=== PATIENT | female | born 1970 | race Caucasian/White ===

== ENCOUNTER 2017-12-18 11:29 | Emergency (ER) | payer OTHER, MEDICAID, SELFPAY ==
[2017-12-18 11:32] VITALS: BP 147/83; PULSE 70; RESP 18; TEMP 36.4; O2SAT 100; BMI 21.7
== END 2017-12-18 13:35 | disposition left against medical advice (07) ==
PROVIDERS: Emergency Provider Nurse Practitioner Family; Family Provider Family Medicine; PCP Family Medicine
DX: R52 Pain, unspecified (principal)
CPT/HCPCS: 99282

== ENCOUNTER 2017-12-18 13:58 | Emergency (ER) | payer OTHER, MEDICAID, SELFPAY ==
[2017-12-18 14:03] VITALS: BP 159/91; PULSE 59; RESP 14; TEMP 36.6; O2SAT 100
--- NOTE | 2017-12-18 14:44 | ED_ITS ---
HPI - Back Pain/Injury <TELLY Hankins - Last Filed: 12/18/17 22:29> General Chief Complaint: Back Pain/Injury Stated Complaint: pinched nerve pain Time Seen by Provider: 12/18/17 14:44 History of Present Illness HPI Narrative: 47-year-old female here for complaint of having pain into her left shoulder/trapezius area over the past few days. She has had a chronic pain to that area since April that last year and has been currently going to physical therapy for that reason. She states that she was out of physical therapy for a few weeks as she was down in or gain in now that she is back she went back to physical therapy and felt that physical therapy as she has not been used to it has caused discomfort. She denies any trauma to the area. Increased pain with motion of the left shoulder area. She denies any other concerns or complaints at this time. Related Data Home Medications Medication Instructions Recorded Confirmed montelukast 10 mg PO DAILY 12/18/17 12/29/17 oxybutynin chloride 5 mg PO TID 12/18/17 12/29/17 acyclovir 400 mg PO BID PRN 12/29/17 12/29/17 clonidine HCl 0.1 mg PO HS PRN 12/29/17 12/29/17 estradiol [Yuvafem] 1 tab VAGINAL DAILY 12/29/17 12/29/17 fluticasone 1 spray INTRANASAL DIRECTED 12/29/17 12/29/17 lurasidone [Latuda] 20 mg PO BEDTIME 12/29/17 12/29/17 naproxen [Naprosyn] 500 mg PO BIDCC PRN 12/29/17 12/29/17 Previous Rx's Medication Instructions Recorded lamotrigine [Lamictal] 200 mg PO QDAY #60 tab 08/25/17 lithium carbonate 300 mg PO HS #30 cap 08/25/17 cyclobenzaprine 10 mg PO TID PRN #15 tab 12/18/17 dextroamphetamine-amphetamine ER 60 mg PO QAM #60 cap 12/18/17 30 mg 24hr capsule,extend release clindamycin HCl 300 mg PO QID #28 cap 12/29/17 hydrocodone-acetaminophen 1 tab PO Q4-6H PRN #5 tab 12/29/17 Allergies Allergy/AdvReac Type Severity Reaction Status Date / Time Penicillins [PENICILLINS] Allergy Severe ANAPHYLAXIS Verified 12/18/17 11:35 Review of Systems <TELLY Hankins - Last Filed: 12/18/17 22:29> Constitutional Denies chills, Denies fever(s), Denies lethargy and Denies weakness Eyes Denies change in vision, Denies eye discharge, Denies irritation and Denies loss of vision Cardiovascular Denies chest pain, Denies irregular heart rhythm, Denies lightheadedness, Denies palpitations, Denies dyspnea, Denies dyspnea on exertion and Denies orthopnea Respiratory Denies cough, Denies dyspnea, Denies dyspnea on exertion and Denies wheezing Gastrointestinal Gastrointestinal: Denies abdominal pain, Denies change in bowel habits, Denies diarrhea, Denies nausea and Denies vomiting Genitourinary Denies hematuria, Denies flank pain, Denies urinary incontinence and Denies urinary urgency Musculoskeletal Comments: Pain into left trapezius radiating into the left shoulder. Neurologic Denies loss of vision and Denies weakness Endocrine Denies palpitations Hematologic/Lymphatic Denies easy bruising Allergic/Immunologic Denies wheezing Exam <TELLY Hankins - Last Filed: 12/18/17 22:29> Initial Vital Signs Initial Vital Signs: Vital Signs Temperature 97.8 F 12/18/17 14:03 Pulse Rate 59 L 12/18/17 14:03 Respiratory Rate 14 12/18/17 14:03 Blood Pressure 159/91 H 12/18/17 14:03 Pulse Oximetry 100 12/18/17 14:03 Const General: cooperative and well developed Nutritional Appearance: well nourished Orientation: alert, awake, oriented x3 and not confused [facility] Mouth: oral mucosae normal and moist mucous membranes Eyes General: appearance normal, both eyes and all related structures Eyelids: eyelids normal Conjunctivae: conjunctivae normal Sclera: sclerae normal Pupils: PERRL EOM: EOM intact bilaterally Neck Other: Tenderness on palpation to left trapezius area no tenderness to the paraspinals of cervical spine or to midline cervical spine. Tenderness does radiate into the paraspinals of the thoracic spine of the left side and into the left shoulder. Distal sensation is intact. Distal pulses is intact. Distal motor function is intact. Resp Effort & Inspection: normal respiratory effort, able to speak in complete sentences, no respiratory distress and no use of accessory muscles Auscultation: clear to auscultation bilaterally, no rales, no rhonchi and no wheezes Cardio Rate: regular rate Rhythm: regular rhythm Heart Sounds: no click, no gallops, no murmurs and no rubs Pulses: normal peripheral pulses GI Inspection: non-distended Palpation: soft, no hepatosplenomegaly, No guarding, No pulsatile mass and No tender Auscultation: normal bowel sounds Skin General: no rashes or lesions noted, No jaundice and No petechiae Neuro General: alert, oriented x3, gait normal and no focal motor deficits Speech: speech normal <Will Bravo MD - Last Filed: 01/01/18 08:16> Initial Vital Signs Initial Vital Signs: Vital Signs Temperature 97.8 F 12/18/17 14:03 Pulse Rate 59 L 12/18/17 14:03 Respiratory Rate 14 12/18/17 14:03 Blood Pressure 159/91 H 12/18/17 14:03 Pulse Oximetry 100 12/18/17 14:03 Course <TELLY Hankins - Last Filed: 12/18/17 22:29> Vital Signs - 8 hr 12/18/17 14:03 Temperature 97.8 F Pulse Rate 59 L Respiratory Rate 14 Blood Pressure 159/91 H Pulse Oximetry 100 <Will Bravo MD - Last Filed: 01/01/18 08:16> Vital Signs - 8 hr 12/18/17 14:03 Temperature 97.8 F Pulse Rate 59 L Respiratory Rate 14 Blood Pressure 159/91 H Pulse Oximetry 100 MDM - Back Pain/Injury <TELLY Hankins - Last Filed: 12/18/17 22:29> [facility] Narrative Medical decision making narrative: Sinus symptoms presents as acute muscle sprain to the left shoulder region. Zjka-[id number] ibuprofen as needed for discomfort. Patient has been using naproxen and also ibuprofen she is cautioned against using both and recommended to use only 1. Cyclobenzaprine is prescribed to help with muscle tension. Small amount of [place] is prescribed for breakthrough pain not covered by ibuprofen. Patient is instructed not to use the [place] with the cyclobenzaprine. Patient states that she understood. Follow up with primary care provider in the next few days for re-evaluation. For any worsening symptoms return to the emergency room. Discharge Plan Departure Patient Disposition: Home, Self-Care Clinical Impression: Left shoulder strain Discharge Date/Time: 12/18/17 15:29 Interventions: ED Discharge Assessment Last Done: 12/18/17 15:29 Instructions: DI for Shoulder Pain Activity Restrictions/Additional Instructions: Signs and symptoms presents as muscle strain into the left shoulder region. Use [id number] ibuprofen or naproxen not both for discomfort. Muscle relaxer cyclobenzaprine as prescribed to help with muscle tension use as directed. No driving while on the muscle relaxer as it can make you drowsy. Small amount of [place] is prescribed for breakthrough pain use as directed. Do not use the muscle relaxer and a [place] at the same time. No driving while on the [place] as well. Follow up with her primary care provider in the next few days for re-evaluation. For any worsening symptoms return to the emergency room. Prescriptions: New cyclobenzaprine 10 mg tablet 10 mg PO TID PRN (Reason: muscle spasm) Qty: 15 RF: 0 No Action lithium carbonate 300 MG capsule 300 mg PO HS Qty: 30 RF: 1 lamotrigine [Lamictal] 100 MG tablet 200 mg PO QDAY Qty: 60 RF: 1 dextroamphetamine-amphetamine [Adderall XR] 30 mg capsule,extended release 24hr 60 mg PO QAM Qty: 60 RF: 0 montelukast 10 mg tablet 10 mg PO DAILY RF: 0 oxybutynin chloride 5 mg tablet 5 mg PO TID RF: 0 fluticasone 50 mcg/actuation spray,suspension 1 spray Intranasal DIRECTED RF: 0 estradiol [Yuvafem] 10 mcg tablet 1 tab Vaginal DAILY RF: 0 lurasidone [Latuda] 20 MG tablet 20 mg PO BEDTIME RF: 0 clonidine HCl 0.1 MG tablet 0.1 mg PO HS PRN (Reason: as directed) RF: 0 acyclovir 400 mg tablet 400 mg PO BID PRN (Reason: as directed) RF: 0 naproxen [Naprosyn] 500 MG tablet 500 mg PO BIDCC PRN (Reason: Pain, Mild) RF: 0 clindamycin HCl 300 mg capsule 300 mg PO QID Qty: 28 RF: 0 hydrocodone-acetaminophen 5-325 mg tablet 1 tab PO Q4-6H PRN (Reason: pain) Qty: 5 RF: 0 Referrals: Debby Qureshi DO [Primary Care Provider] - <Will Bravo MD - Last Filed: 01/01/18 08:16> Sign Out Provider Sign Out Attestation: The PA/[employer]ER functioned independently for the care of this pt, I was available, but not asked to participate in care. I am unable to determine appropriateness of management without personally examining the pt.
--- NOTE | 2017-12-18 15:27 | PC.NURSE ---
back pain, lt side neck/shoulder, acute on chronic x4 days, no recent injury, normal AROM of neck/shoulder, distal cms intact
== END 2017-12-18 15:29 | disposition home or self-care (01) ==
PROVIDERS: Emergency Provider Nurse Practitioner Family; Family Provider Family Medicine; PCP Family Medicine
DX: M54.9 Dorsalgia, unspecified (principal)
CPT/HCPCS: 99282

== ENCOUNTER 2017-12-29 15:38 | Emergency (ER) | payer OTHER, MEDICAID, SELFPAY ==
[2017-12-29 16:13] VITALS: BP 130/81; PULSE 88; RESP 16; TEMP 37.3; O2SAT 100
--- NOTE | 2017-12-29 16:18 | DI.RAD.S_ITS ---
PROCEDURE: XR FOOT RT MIN 3V INDICATIONS: Right foot swelling with cyst/bump TECHNIQUE: 3 views of the foot were acquired. COMPARISON: None. FINDINGS: Bones: No fractures or dislocations. No suspicious bony lesions. Soft tissues: No tibiotalar joint effusion. Achilles tendon appears normal. IMPRESSION: No fracture. No osseous lesion. If symptoms and/or clinical suspicion for pathology persists, further assessment with advanced imaging (e.g. CT, MRI or bone scan) may be helpful. Dictated by: Roro Spaulding MD, PhD on 12/29/2017 at 16:38 Approved by: Roro Spaulding MD, PhD on 12/29/2017 at 16:43
--- NOTE | 2017-12-29 17:49 | ED_ITS ---
HPI - Extremity Injury (Lower) <TELLY Hankins - Last Filed: 12/29/17 22:14> General Chief Complaint: Extremity Injury, Lower Stated Complaint: RIGHT FOOT SWELLING Time Seen by Provider: 12/29/17 17:24 Source: patient Mode of arrival: ambulatory Limitations: no limitations History of Present Illness HPI Narrative: 47-year-old female here for complaint of redness and pain with slight swelling to her right foot that started last night. She reported that the redness was worse last night however is still present but reduced. She does report that it is painful to touch to the right ft. She denies any trauma to the area. No fevers no chills. She is ambulatory into the emergency room. Denies any other concerns or complaints at this time. Related Data Home Medications Medication Instructions Recorded Confirmed montelukast 10 mg PO DAILY 12/18/17 12/29/17 oxybutynin chloride 5 mg PO TID 12/18/17 12/29/17 acyclovir 400 mg PO BID PRN 12/29/17 12/29/17 clonidine HCl 0.1 mg PO HS PRN 12/29/17 12/29/17 estradiol [Yuvafem] 1 tab VAGINAL DAILY 12/29/17 12/29/17 fluticasone 1 spray INTRANASAL DIRECTED 12/29/17 12/29/17 lurasidone [Latuda] 20 mg PO BEDTIME 12/29/17 12/29/17 naproxen [Naprosyn] 500 mg PO BIDCC PRN 12/29/17 12/29/17 Previous Rx's Medication Instructions Recorded lamotrigine [Lamictal] 200 mg PO QDAY #60 tab 08/25/17 lithium carbonate 300 mg PO HS #30 cap 08/25/17 cyclobenzaprine 10 mg PO TID PRN #15 tab 12/18/17 dextroamphetamine-amphetamine ER 60 mg PO QAM #60 cap 12/18/17 30 mg 24hr capsule,extend release clindamycin HCl 300 mg PO QID #28 cap 12/29/17 hydrocodone-acetaminophen 1 tab PO Q4-6H PRN #5 tab 12/29/17 Allergies Allergy/AdvReac Type Severity Reaction Status Date / Time Penicillins [PENICILLINS] Allergy Severe ANAPHYLAXIS Verified 12/18/17 11:35 Review of Systems <TELLY Hankins - Last Filed: 12/29/17 22:14> Constitutional Denies chills, Denies fever(s), Denies lethargy and Denies weakness Eyes Denies change in vision, Denies eye discharge, Denies irritation and Denies loss of vision ENT Ears, Nose, Mouth, and Throat: Denies change in voice, Denies neck pain and Denies sore throat Cardiovascular Denies chest pain, Denies irregular heart rhythm, Denies lightheadedness, Denies palpitations, Denies dyspnea, Denies dyspnea on exertion and Denies orthopnea Respiratory Denies cough, Denies dyspnea, Denies dyspnea on exertion and Denies wheezing Gastrointestinal Gastrointestinal: Denies abdominal pain, Denies change in bowel habits, Denies diarrhea, Denies nausea and Denies vomiting Genitourinary Denies hematuria, Denies flank pain, Denies urinary incontinence and Denies urinary urgency Musculoskeletal Denies neck pain Comments: Erythema and swelling with discomfort to the dorsal aspect of the right foot Integumentary/Breasts Denies pruritus, Denies erythema, Denies rash and Denies wounds Neurologic Denies confusion, Denies loss of vision and Denies weakness Psychiatric Denies anxiety, Denies confusion, Denies depression, Denies homicidal ideation and Denies suicidal ideation Endocrine Denies palpitations Hematologic/Lymphatic Denies easy bruising Allergic/Immunologic Denies wheezing Exam <TELLY Hankins - Last Filed: 12/29/17 22:14> Initial Vital Signs Initial Vital Signs: Vital Signs Temperature 99.1 F 12/29/17 16:13 Pulse Rate 88 12/29/17 16:13 Respiratory Rate 16 12/29/17 16:13 Blood Pressure 130/81 H 12/29/17 16:13 Pulse Oximetry 100 12/29/17 16:13 Const General: cooperative and well developed Nutritional Appearance: well nourished Orientation: alert, awake, oriented x3 and not confused [facility] Mouth: oral mucosae normal and moist mucous membranes Eyes Conjunctivae: conjunctivae normal Sclera: sclerae normal Pupils: PERRL EOM: EOM intact bilaterally Resp Effort & Inspection: normal respiratory effort, able to speak in complete sentences, no respiratory distress and no use of accessory muscles Auscultation: clear to auscultation bilaterally, no rales, no rhonchi and no wheezes Cardio Rate: regular rate Rhythm: regular rhythm Heart Sounds: no click, no gallops, no murmurs and no rubs Pulses: normal peripheral pulses Skin General: no rashes or lesions noted, No jaundice and No petechiae Neuro General: alert, oriented x3, gait normal and no focal motor deficits Speech: speech normal Extrem Other: Erythema and slight swelling to the dorsal aspect of the right foot. Increased warmth with palpation to the dorsal aspect of the right foot. Distal sensation is intact. Distal range of motion is intact. Distal pulses are intact. <DO Nikita Mary Last Filed: 12/30/17 04:52> Initial Vital Signs Initial Vital Signs: Vital Signs Temperature 99.1 F 12/29/17 16:13 Pulse Rate 88 12/29/17 16:13 Respiratory Rate 16 12/29/17 16:13 Blood Pressure 130/81 H 12/29/17 16:13 Pulse Oximetry 100 12/29/17 16:13 Course <TELLY Hankins - Last Filed: 12/29/17 22:14> Orders Ordered: ED Orders 12/29/17 16:18 XR foot RT min 3V Stat Vital Signs - 8 hr 12/29/17 16:13 12/29/17 18:39 Temperature 99.1 F Pulse Rate 88 66 Respiratory Rate 16 16 Blood Pressure 130/81 H Blood Pressure [Left Arm] 137/75 H Pulse Oximetry 100 99 <DO Nikita Mary Last Filed: 12/30/17 04:52> Orders Ordered: ED Orders 12/29/17 16:18 XR foot RT min 3V Stat Vital Signs - 8 hr 12/29/17 16:13 12/29/17 18:39 Temperature 99.1 F Pulse Rate 88 66 Respiratory Rate 16 16 Blood Pressure 130/81 H Blood Pressure [Left Arm] 137/75 H Pulse Oximetry 100 99 MDM - Extremity Injury (Lower) <TELLY Hankins Filed: 12/29/17 22:14> Imaging Data foot: Radiologist's impression: Patient: Margo Bravo MR#: [id number] : 1970 Acct:[id number] Age/Sex: 47 / F Date of Service: 12/29/17 Loc: ED Accession Number: [id number] Procedure: XR foot RT min 3V Ordering Provider: Will Bravo M.D. PROCEDURE: XR FOOT RT MIN 3V INDICATIONS: Right foot swelling with cyst/bump TECHNIQUE: 3 views of the foot were acquired. COMPARISON: None. FINDINGS: Bones: No fractures or dislocations. No suspicious bony lesions. Soft tissues: No tibiotalar joint effusion. Achilles tendon appears normal. IMPRESSION: No fracture. No osseous lesion. If symptoms and/or clinical suspicion for pathology persists, further assessment with advanced imaging (e.g. CT, MRI or bone scan) may be helpful. Dictated by: Roro Spaulding MD, PhD on 12/29/2017 at 16:38 Approved by: Roor Spaulding MD, PhD on 12/29/2017 at 16:43 [facility] Narrative Medical decision making narrative: X-ray the right foot was obtained was negative for any acute findings. Signs and symptoms suspicious for starting cellulitis. Differential of gout. Although she has no tenderness in her toes. She is placed on clindamycin. Vywx-kpu-heivnad Tylenol or Motrin as needed for any discomfort. Area erythema was marked with a skin marker. Follow up with primary care provider in the next few days for re-evaluation. Small amount of [place] is prescribed for breakthrough pain. For any worsening symptoms return to the emergency room. Discharge Plan Departure Patient Disposition: Home, Self-Care Clinical Impression: Cellulitis of foot, right Discharge Date/Time: 12/29/17 18:50 Interventions: ED Discharge Assessment Last Done: 12/29/17 18:49 Instructions: DI for Cellulitis -- Adult Activity Restrictions/Additional Instructions: X-ray the right foot was obtained was negative for any acute findings. Signs and symptoms suspicious for starting cellulitis. She is placed on clindamycin. [id number] Tylenol or Motrin as needed for any discomfort. Follow up with primary care provider in the next few days for re-evaluation. Small amount of [place] is prescribed for breakthrough pain. For any worsening symptoms return to the emergency room. Prescriptions: New clindamycin HCl 300 mg capsule 300 mg PO QID Qty: 28 RF: 0 hydrocodone-acetaminophen 5-325 mg tablet 1 tab PO Q4-6H PRN (Reason: pain) Qty: 5 RF: 0 No Action lithium carbonate 300 MG capsule 300 mg PO HS Qty: 30 RF: 1 lamotrigine [Lamictal] 100 MG tablet 200 mg PO QDAY Qty: 60 RF: 1 dextroamphetamine-amphetamine [Adderall XR] 30 mg capsule,extended release 24hr 60 mg PO QAM Qty: 60 RF: 0 montelukast 10 mg tablet 10 mg PO DAILY RF: 0 oxybutynin chloride 5 mg tablet 5 mg PO TID RF: 0 cyclobenzaprine 10 mg tablet 10 mg PO TID PRN (Reason: muscle spasm) Qty: 15 RF: 0 fluticasone 50 mcg/actuation spray,suspension 1 spray Intranasal DIRECTED RF: 0 estradiol [Yuvafem] 10 mcg tablet 1 tab Vaginal DAILY RF: 0 lurasidone [Latuda] 20 MG tablet 20 mg PO BEDTIME RF: 0 clonidine HCl 0.1 MG tablet 0.1 mg PO HS PRN (Reason: as directed) RF: 0 acyclovir 400 mg tablet 400 mg PO BID PRN (Reason: as directed) RF: 0 naproxen [Naprosyn] 500 MG tablet 500 mg PO BIDCC PRN (Reason: Pain, Mild) RF: 0 Referrals: Debby Qureshi DO [Primary Care Provider] - <Barb Juarez DO - Last Filed: 12/30/17 04:52> [facility] ED Attending Mishaature Attestation: I was immediately available in the department for consultation. Documentation has been reviewed. I agree with assessment and plan.
[2017-12-29 18:39] VITALS: BP 137/75; PULSE 66; RESP 16; O2SAT 99
== END 2017-12-29 18:50 | disposition home or self-care (01) ==
PROVIDERS: Emergency Provider Nurse Practitioner Family; Family Provider Family Medicine; PCP Family Medicine
DX: L03.115 Cellulitis of right lower limb (principal)
CPT/HCPCS: 73630; 99282; 99283

== ENCOUNTER → 2018-01-17 09:03 | Outpatient (CLI) | payer OTHER, MEDICAID, SELFPAY ==
--- NOTE | 2018-01-17 09:05 | DI.US.S_ITS ---
PROCEDURE: US EXTREMITY NONVASC LOWER RT INDICATIONS: nodule dorsum right foot TECHNIQUE: Real-time scanning was performed of the proximal fourth metacarpal region superficially, along the dorsum of the right foot, with image documentation. COMPARISON: [facility], CR, XR FOOT RT MIN 3V, 12/29/2017, 16:05. FINDINGS: There is a complex hypoechoic structure with internal echoes and several small cystic components, measuring overall 1.8 x 0.5 x 1.5 cm. And shows no visible internal blood flow. IMPRESSION: Possible ganglion cysts versus old hematoma, and less likely a hypovascular neoplasm as cause of the focal palpable abnormality at the dorsum of the right foot. This is not a simple cyst. It does not demonstrate visible internal vascularity. Close clinical followup is recommended and depending on clinical status followup by contrast-enhanced MR scanning may become necessary. Dictated by: Adarsh Lopez M.D. on 01/17/2018 at 9:50 Approved by: Adarsh Lopez M.D. on 01/17/2018 at 10:13
== END ==
PROVIDERS: Family Provider Family Medicine; PCP Family Medicine; Visit Provider Nurse Practitioner Family
DX: M79.9 Soft tissue disorder, unspecified (principal); M67.471 Ganglion, right ankle and foot
CPT/HCPCS: 76882

== ENCOUNTER → 2018-02-16 15:24 | Outpatient (CLI) | payer OTHER, MEDICAID, SELFPAY ==
[2018-02-16 16:06] LABS: Appearance Urine UA CLEAR; Bilirubin Urine UA NEGATIVE (NEGATIVE); Color Urine UA YELLOW; Glucose Urine UA NEGATIVE (Normal); Ketones Urine UA NEGATIVE (NEGATIVE); Leukocyte Esterase Urine UA NEGATIVE (NEGATIVE); Nitrite Urine UA Negative (Negative); Occult Blood Urine UA NEGATIVE (Negative); Protein Urine UA NEGATIVE (Negative); Specific Gravity Urine UA 1.015 (1.000-1.035); Urobilinogen Urine UA 0.2 E.U./dL (0.2); pH Urine UA 5.5 (4.5-8.0)
[2018-02-16 16:23] LABS: Add Manual Diff / Slide Review NO; Basophils Percent Auto 0.7 % (0-2); Eosinophils Percent Auto 0.7 % (2-4); Hematocrit 39.7 % (36-46); Hemoglobin 13.6 g/dL (12.0-16.0); Lymphocytes Percent Auto 44.7 % (25-40); Mean Corpuscular HGB Conc 34.2 % (30-36); Mean Corpuscular Hemoglobin 33.2 PG (26-34); Monocytes Percent Auto 8.6 % (3-14); Neutrophils Absolute Auto 2200 /uL (3000-5900); Neutrophils Percent Auto 45.3 % (50-75); Platelet Count 340 X10^3/uL (150-400); Red Blood Cell Count 4.09 X10^6/uL (4.0-5.2); Red Cell Distribution Width 12.7 % (11.6-14.8); White Blood Cell Count 4.8 X10^3/uL (4.5-11.0)
[2018-02-16 17:22] LABS: Alanine Aminotransferase 27 IU/L (9-52); Albumin 4.4 g/dL (3.5-5.0); Albumin Globulin Ratio 1.6 (1.0-2.8); Alkaline Phosphatase 54 U/L (38-126); Aspartate Aminotransferase 20 IU/L (14-36); Bilirubin Total 0.6 mg/dL (0.2-1.3); Blood Urea Nitrogen 9 mg/dL (7-17); Calcium 10.1 mg/dL (8.4-10.2); Carbon Dioxide 31 mmol/L (22-32); Chloride 103 mmol/L (98-107); Cholesterol 292 mg/dL (140-199); Estimated Glomerular Filt Rate > 60.0 mL/min (>60); Globulin 2.8 g/dL (1.7-4.1); Glucose 87 mg/dL (70-100); HDL Cholesterol 65 mg/dL (40-60); HEMOLYSIS < 15 (0-50); LDL Cholesterol Calculated 211 mg/dL (<100); Potassium 4.5 mmol/L (3.4-5.1); Sodium 143 mmol/L (137-145); Total Protein 7.2 g/dL (6.3-8.2); Triglycerides 81 mg/dL (35-150)
[2018-02-16 17:55] LABS: TSH w/ Reflex to FT4 1.28 uIU/mL (0.47-4.68)
[2018-02-16 17:58] LABS: Ferritin 64.2 ng/mL (6.27-137)
== END ==
PROVIDERS: Nurse Practitioner Psychiatric/Mental Health; Family Provider Family Medicine; PCP Family Medicine; Visit Provider Nurse Practitioner Family
DX: Z00.00 Encounter for general adult medical examination without abnormal findings (principal); Z79.899 Other long term (current) drug therapy
CPT/HCPCS: 36415; 80053; 80061; 81003; 82306; 82728; 84443; 85025

== ENCOUNTER → 2018-02-20 13:26 | Outpatient (CLI) | payer OTHER, MEDICAID, SELFPAY ==
--- NOTE | 2018-02-20 13:28 | DI.MRI.S_ITS ---
PROCEDURE: MR CERVICAL SPINE WO CON INDICATIONS: NECK PAIN WITH RADIC TECHNIQUE: Noncontrast sagittal T1 spin echo and T2 fast spin echo, sagittal STIR, foraminal oblique sagittal T2 fast spin echo, and axial gradient echo or T2 fast spin echo through the cervical spine. COMPARISON: None. FINDINGS: Image quality: Excellent. Alignment and Curvature: There is normal bony alignment. Bone Marrow: Marrow demonstrates normal overall signal. Spinal Cord: Visualized spinal cord has normal size and signal. No cerebellar tonsillar herniation. Paraspinous Soft Tissues: No paravertebral masses. Prevertebral soft tissues are normal in thickness. C2-C3: Preserved disc height. Mild disc desiccation. There is minimal posterior disc bulge. The central canal is patent. No foraminal stenosis. C3-C4: Preserved disc height. Mild disc desiccation. There is diffuse posterior disc bulge. Mild uncovertebral hypertrophy. The central canal is mildly narrowed. Mild left foraminal stenosis. No right foraminal stenosis. C4-C5: Preserved disc height. Mild disc desiccation. There is diffuse posterior disc bulge. Mild uncovertebral hypertrophy. Mild bilateral facet arthropathy. The central canal is mildly narrowed. Mild bilateral foraminal stenosis. C5-C6: Preserved disc height. Mild disc desiccation. There is diffuse posterior disc bulge. Moderate uncovertebral hypertrophy. Mild bilateral facet arthropathy. The central canal is ctwcmzec-[id number]-urqiagti narrowed. Severe left and moderate right foraminal stenosis. C6-C7: Preserved disc height. Mild disc desiccation. There is diffuse posterior disc bulge. Moderate uncovertebral hypertrophy. The central canal is rxkiniyq-yj-iubawbuf narrowed. Severe bilateral foraminal stenosis. C7-T1: Normal appearance. IMPRESSION: 1. Multilevel degenerative disc disease and facet arthropathy as described. 2. Moderate to severe central canal stenosis at C5-C6 and C6-C7. 3. Multilevel foraminal stenosis, severe at C5-C6 on the left and C6-C7 bilaterally, moderate at C5-C6 on the right. Dictated by: Fiorella Hay M.D. on 02/20/2018 at 17:08 Approved by: Fiorella Hay M.D. on 02/21/2018 at 10:07
== END ==
PROVIDERS: Family Provider Family Medicine; PCP Family Medicine; Visit Provider Nurse Practitioner Family
DX: M50.11 Cervical disc disorder with radiculopathy, high cervical region (principal); M48.02 Spinal stenosis, cervical region; M79.2 Neuralgia and neuritis, unspecified
CPT/HCPCS: 72141

== ENCOUNTER 2018-04-24 09:36 | Outpatient (RCR) | payer OTHER, MEDICAID, SELFPAY | END 2019-03-20 16:03 | LOC: PHYS 09:36 | PROVIDERS: PCP Family Medicine; Visit Provider Neurological Surgery | DX: M54.2 Cervicalgia (principal); M47.22 Other spondylosis with radiculopathy, cervical region ==

== ENCOUNTER → 2018-05-14 09:36 | Outpatient (CLI) | payer OTHER, MEDICAID, SELFPAY ==
[2018-05-14 10:13] LABS: Add Manual Diff / Slide Review NO; Basophils Percent Auto 0.5 % (0-2); Eosinophils Percent Auto 2.8 % (2-4); Hematocrit 41.3 % (36-46); Hemoglobin 13.9 g/dL (12.0-16.0); Lymphocytes Percent Auto 32.9 % (25-40); Mean Corpuscular HGB Conc 33.8 % (30-36); Mean Corpuscular Hemoglobin 32.7 PG (26-34); Mean Corpuscular Volume 96.8 fL (80-100); Monocytes Percent Auto 7.8 % (3-14); Neutrophils Absolute Auto 3500 /uL (1500-7000); Platelet Count 338 X10^3/uL (150-400); Red Blood Cell Count 4.26 X10^6/uL (4.0-5.2); White Blood Cell Count 6.3 X10^3/uL (4.5-11.0)
[2018-05-14 10:44] LABS: Pregnancy Test Serum,Qual Negative (Negative)
[2018-05-14 10:48] LABS: Alanine Aminotransferase 19 IU/L (9-52); Albumin 4.4 g/dL (3.5-5.0); Albumin Globulin Ratio 1.5 (1.0-2.8); Alkaline Phosphatase 66 U/L (38-126); Aspartate Aminotransferase 26 IU/L (14-36); Bilirubin Total 0.3 mg/dL (0.2-1.3); Blood Urea Nitrogen 15 mg/dL (7-17); Calcium 9.3 mg/dL (8.4-10.2); Carbon Dioxide 30 mmol/L (22-32); Chloride 103 mmol/L (98-107); Estimated Glomerular Filt Rate > 60.0 mL/min (>60); Globulin 2.9 g/dL (1.7-4.1); Glucose 94 mg/dL (70-100); HEMOLYSIS < 15 (0-50); Sodium 143 mmol/L (137-145); Total Protein 7.3 g/dL (6.3-8.2)
[2018-05-14 11:03] LABS: Urine Amphetamines Positive (Negative); Urine Barbiturates Negative (Negative); Urine Benzodiazepines Negative (Negative); Urine Cocaine Negative (Negative); Urine MDMA Negative (Negative); Urine Methadone Negative (Negative); Urine Methamphetamines Negative (Negative); Urine Morphine/Opi cutoff 2000 Negative (Negative); Urine Oxycodone Negative (Negative); Urine Phencyclidine Negative (Negative); Urine Tetrahydrocannabinol Positive (Negative); Urine Tricyclic Antidepressant Negative (Negative)
[2018-05-14 11:43] LABS: Lithium < 0.2 mmol/L (0.6-1.2)
== END ==
PROVIDERS: PCP Family Medicine; Visit Provider Nurse Practitioner Psychiatric/Mental Health
DX: F31.4 Bipolar disorder, current episode depressed, severe, without psychotic features (principal)
CPT/HCPCS: 36415; 80053; 80178; 80305; 84703; 85025

== ENCOUNTER 2019-04-16 10:30 | Outpatient (RCR) | payer OTHER, MEDICAID, SELFPAY ==
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
--- NOTE | 2019-03-07 10:29 | PT.OTN ---
Current Diagnoses Cervicalgia (03/07/19) Neuralgia and neuritis, unspecified (03/07/19) Physical Therapy Treatment Note PT-OP-A Visit Information Start: 03/05/19 08:10 Freq: Status: Active Protocol: Document 03/07/19 09:46 MB (Rec: 03/07/19 10:29 MB [id number]) Out-Patient Physical Therapy Visit Information Visit Information Visit Type Treatment Note Visit Note Initiated breathing, tapping this date to help decrease pain, neck tension Visit Start Time 09:46 Visit Stop Time 10:28 Total Visit Minutes 38 Visit Number 07/22 Number of ELA TEACHER Visits 0 PT-OP-B Current Condition Start: 03/05/19 08:10 Freq: Status: Active Protocol: Document 03/05/19 09:01 MB (Rec: 03/05/19 09:06 MB [id number]) Current Condition History of Current Condition Onset Date Chronic progressive, greater than 1 year Current Complaints See subjective History of Current Condition See subjective Prior Treatments and Tests PT in 2018, only a few treatments d/t increased stress, move Treatment Goals Patient/Caregiver Goals To decrease pain, be able to breathe more deeply Prior Functional Status Baseline Function- ADL's Independent Baseline Function- Mobility Independent Baseline Function- Recreation/Hobbies Running, would like to keep working out Personal Factors Other Personal Factors That May Effect PTSD, depression Therapy/Recovery PT-OP-C Subjective Start: 03/05/19 08:10 Freq: Status: Active Protocol: Document 03/07/19 09:46 MB (Rec: 03/07/19 10:29 MB [id number]) OP-PT Subjective Patient Comments Patient Comments Pt states that she is doing amazing. Things are getting better. She is emotional but is hopeful. PT-OP-J Posture/Palpation/Skin Start: 03/05/19 08:10 Freq: Status: Active Protocol: Document 03/05/19 09:01 MB (Rec: 03/05/19 10:08 MB [id number]) Posture Evaluation Comments Posture Comments Standing posture: decreased cervical lordosis, forward head, mild Dowager's hump, decreased thoracic kyphosis, increased lumbar lordosis, anterior tilt pelvis, right iliac crest mildly higher than the left. PT-OP-K Range of Motion Start: 03/05/19 08:10 Freq: Status: Active Protocol: Document 03/05/19 09:01 MB (Rec: 03/05/19 10:08 MB [id number]) Cervical Spine Range of Motion Cervical Spine Active Testing Position Standing Flexion 45 Extension 35 Rotation Left 40 Rotation Right 40 Lateral Flexion Left 35 Lateral Flexion Right 20 Comments B shoulder flexion and abduction, elbow flexion and extension and pronation and supination and wrist extension and flexion WNLs PT-OP-M Strength Start: 03/05/19 08:10 Freq: Status: Active Protocol: Document 03/05/19 09:01 MB (Rec: 03/05/19 10:08 MB [id number]) Shoulder Strength Shoulder Manual Muscle Testing Right Flexion 4 Good Abduction (C5) 3+ Fair+ External Rotation 5 Normal Internal Rotation 5 Normal Comments Standing Left Flexion 5 Normal Abduction (C5) 5 Normal External Rotation 4 Good Internal Rotation 4 Good Comments Standing Elbow/Forearm Strength Elbow and Forearm Manual Muscle Testing Both Comments B elbow flexion and extension 5/5; B supnation and left pronation 5/5, right pronation 4/5; B wrist flexion and extension 5/5 PT-OP-Q Treatments Start: 03/05/19 08:10 Freq: Status: Active Protocol: Document 03/07/19 09:46 MB (Rec: 03/07/19 10:29 MB [id number]) Therapeutic Exercises Supine Exercises Thoracic stretch and diaphragmatic breathing Comments Hook lying thoracic stretching raising arms overhead, diaphragmatic, pect EFT Tapping Comments EFT tapping to decrease pain, provide stress relief Manual Therapy Treatment Other Other Manual Treatments Sub-occipital release PT-OP-T Assessment and Plan Start: 03/05/19 08:10 Freq: Status: Active Protocol: Document 03/07/19 09:46 MB (Rec: 03/07/19 10:29 MB [id number]) Physical Therapy Assessment Assessment Summary Assessment Con't progressive manual work, consider Buteyko breathing, scapular and core work, likely hook lying. Pt is able to feel better and calm after starting work today. Physical Therapy Plan Frequency and Duration Frequency of Treatment 2x/Week Duration of Treatment 8 weeks Plan of Care Start Date 03/05/19 Plan of Care End Date 05/05/19 Therapeutic Interventions Therapeutic Interventions Balance Training,Home Exercise Program,Joint Mobilizations, Manual Therapy,Neuromuscular Re-education,Patient/Caregiver Education,Self-Care/Home Management,Soft Tissue Mobilization,Taping, Therapeutic Activities, Therapeutic Exercises Modalities Cold Pack/Ice Massage,Electric Stimulation,Hot Packs, Ultrasound Next Visit Focus/Plan Next Note Type Treatment Note Next Visit Plan Initiate scapular ex, cervical ex, possible manual work
--- NOTE | 2019-03-12 10:30 | PT.OTN ---
Current Diagnoses Cervicalgia (03/12/19) Neuralgia and neuritis, unspecified (03/12/19) Physical Therapy Treatment Note PT-OP-A Visit Information Start: 03/05/19 08:10 Freq: Status: Active Protocol: Document 03/12/19 09:52 MB (Rec: 03/12/19 10:30 MB [id number]) Out-Patient Physical Therapy Visit Information Visit Information Visit Type Treatment Note Visit Start Time 09:52 Visit Stop Time 10:30 Total Visit Minutes 38 Visit Number 08/[address] MRI TECHNOLOGIST Visits 0 PT-OP-B Current Condition Start: 03/05/19 08:10 Freq: Status: Active Protocol: Document 03/05/19 09:01 MB (Rec: 03/05/19 09:06 MB [id number]) Current Condition History of Current Condition Onset Date Chronic progressive, greater than 1 year Current Complaints See subjective History of Current Condition See subjective Prior Treatments and Tests PT in 2018, only a few treatments d/t increased stress, move Treatment Goals Patient/Caregiver Goals To decrease pain, be able to breathe more deeply Prior Functional Status Baseline Function- ADL's Independent Baseline Function- Mobility Independent Baseline Function- Recreation/Hobbies Running, would like to keep working out Personal Factors Other Personal Factors That May Effect PTSD, depression Therapy/Recovery PT-OP-C Subjective Start: 03/05/19 08:10 Freq: Status: Active Protocol: Document 03/12/19 09:52 MB (Rec: 03/12/19 10:30 MB [id number]) OP-PT Subjective Patient Comments Patient Comments Pt states that her reunion was boring. She is trying to do belly breathing. She does feel like she gets short of breath /hyperventilated easily. PT-OP-J Posture/Palpation/Skin Start: 03/05/19 08:10 Freq: Status: Active Protocol: Document 03/05/19 09:01 MB (Rec: 03/05/19 10:08 MB [id number]) Posture Evaluation Comments Posture Comments Standing posture: decreased cervical lordosis, forward head, mild Dowager's hump, decreased thoracic kyphosis, increased lumbar lordosis, anterior tilt pelvis, right iliac crest mildly higher than the left. PT-OP-K Range of Motion Start: 03/05/19 08:10 Freq: Status: Active Protocol: Document 03/05/19 09:01 MB (Rec: 03/05/19 10:08 MB [id number]) Cervical Spine Range of Motion Cervical Spine Active Testing Position Standing Flexion 45 Extension 35 Rotation Left 40 Rotation Right 40 Lateral Flexion Left 35 Lateral Flexion Right 20 Comments B shoulder flexion and abduction, elbow flexion and extension and pronation and supination and wrist extension and flexion WNLs PT-OP-M Strength Start: 03/05/19 08:10 Freq: Status: Active Protocol: Document 03/05/19 09:01 MB (Rec: 03/05/19 10:08 MB [id number]) Shoulder Strength Shoulder Manual Muscle Testing Right Flexion 4 Good Abduction (C5) 3+ Fair+ External Rotation 5 Normal Internal Rotation 5 Normal Comments Standing Left Flexion 5 Normal Abduction (C5) 5 Normal External Rotation 4 Good Internal Rotation 4 Good Comments Standing Elbow/Forearm Strength Elbow and Forearm Manual Muscle Testing Both Comments B elbow flexion and extension 5/5; B supnation and left pronation 5/5, right pronation 4/5; B wrist flexion and extension 5/5 PT-OP-Q Treatments Start: 03/05/19 08:10 Freq: Status: Active Protocol: Document 03/12/19 09:52 MB (Rec: 03/12/19 10:30 MB [id number]) Manual Therapy Treatment Other Other Manual Treatments Pt agrees for Counterstrain to assess and treat lymphatic and fascial tension to improve thoracic mobility: anterior neuro, left visceral, right LV epidurals, treated stacks. PT-OP-T Assessment and Plan Start: 03/05/19 08:10 Freq: Status: Active Protocol: Document 03/12/19 09:52 MB (Rec: 03/12/19 10:30 MB [id number]) Physical Therapy Assessment Goals 5 Bridge Expert Goal (LTG) Pt will perform progressive HEP including breathing, ROM, strengthening, postural and relaxation exercises with I by 05/05/19. LTG Duration 8 weeks 4 Bridge Expert Goal (LTG) Pt will present with improved QuickDASH score to reflect no more than 20% impairment by . LTG Duration 8 weeks 3 Bridge Expert Goal (LTG) Pt will present with improved NDI score to reflect no more than 20% impairment by 05/05/19 . LTG Duration 8 weeks 2 Impairment Weakness Bridge Expert Goal (LTG) Pt will present with B shoulder flexion and abduction and ER and IR MMT to 5/5 by 05/05/19. LTG Duration 8 weeks 1 Impairment Pain Skilled Nursing Goal (LTG) Pt will report a 50% improvement in neck, B shoulder and right arm pain by 05/05/19. LTG Duration 8 weeks Assessment Summary Assessment Pt responds well to Counterstrain this date. She can expand through her thoracic spine better after treatment. Con't to monitor response. Physical Therapy Plan Frequency and Duration Frequency of Treatment 2x/Week Duration of Treatment 8 weeks Plan of Care Start Date 03/05/19 Plan of Care End Date 05/05/19 Therapeutic Interventions Therapeutic Interventions Balance Training,Home Exercise Program,Joint Mobilizations, Manual Therapy,Neuromuscular Re-education,Patient/Caregiver Education,Self-Care/Home Management,Soft Tissue Mobilization,Taping, Therapeutic Activities, Therapeutic Exercises Modalities Cold Pack/Ice Massage,Electric Stimulation,Hot Packs, Ultrasound Next Visit Focus/Plan Next Note Type Treatment Note Next Visit Plan Initiate Buteyko breathing, scapular ex, cervical ex, possible manual work including rib recoil, neural fascial work.
--- NOTE | 2019-03-14 10:28 | PT.OTN ---
Current Diagnoses Cervicalgia (03/14/19) Neuralgia and neuritis, unspecified (03/14/19) Physical Therapy Treatment Note PT-OP-A Visit Information Start: 03/05/19 08:10 Freq: Status: Active Protocol: Document 03/14/19 09:50 MB (Rec: 03/14/19 10:26 MB [id number]) Out-Patient Physical Therapy Visit Information Visit Information Visit Type Treatment Note Visit Start Time 09:50 Visit Stop Time 10:24 Total Visit Minutes 34 Visit Number 09/19 Number of DELIVERY DEPARTMENT SUPERVISOR Visits 0 PT-OP-B Current Condition Start: 03/05/19 08:10 Freq: Status: Active Protocol: Document 03/05/19 09:01 MB (Rec: 03/05/19 09:06 MB [id number]) Current Condition History of Current Condition Onset Date Chronic progressive, greater than 1 year Current Complaints See subjective History of Current Condition See subjective Prior Treatments and Tests PT in 2018, only a few treatments d/t increased stress, move Treatment Goals Patient/Caregiver Goals To decrease pain, be able to breathe more deeply Prior Functional Status Baseline Function- ADL's Independent Baseline Function- Mobility Independent Baseline Function- Recreation/Hobbies Running, would like to keep working out Personal Factors Other Personal Factors That May Effect PTSD, depression Therapy/Recovery PT-OP-C Subjective Start: 03/05/19 08:10 Freq: Status: Active Protocol: Document 03/14/19 09:50 MB (Rec: 03/14/19 10:26 MB [id number]) OP-PT Subjective Patient Comments Patient Comments Pt states that she is doing okay. Patient Reported Progress Improving PT-OP-J Posture/Palpation/Skin Start: 03/05/19 08:10 Freq: Status: Active Protocol: Document 03/05/19 09:01 MB (Rec: 03/05/19 10:08 MB [id number]) Posture Evaluation Comments Posture Comments Standing posture: decreased cervical lordosis, forward head, mild Dowager's hump, decreased thoracic kyphosis, increased lumbar lordosis, anterior tilt pelvis, right iliac crest mildly higher than the left. PT-OP-K Range of Motion Start: 03/05/19 08:10 Freq: Status: Active Protocol: Document 03/05/19 09:01 MB (Rec: 03/05/19 10:08 MB [id number]) Cervical Spine Range of Motion Cervical Spine Active Testing Position Standing Flexion 45 Extension 35 Rotation Left 40 Rotation Right 40 Lateral Flexion Left 35 Lateral Flexion Right 20 Comments B shoulder flexion and abduction, elbow flexion and extension and pronation and supination and wrist extension and flexion WNLs PT-OP-M Strength Start: 03/05/19 08:10 Freq: Status: Active Protocol: Document 03/05/19 09:01 MB (Rec: 03/05/19 10:08 MB [id number]) Shoulder Strength Shoulder Manual Muscle Testing Right Flexion 4 Good Abduction (C5) 3+ Fair+ External Rotation 5 Normal Internal Rotation 5 Normal Comments Standing Left Flexion 5 Normal Abduction (C5) 5 Normal External Rotation 4 Good Internal Rotation 4 Good Comments Standing Elbow/Forearm Strength Elbow and Forearm Manual Muscle Testing Both Comments B elbow flexion and extension 5/5; B supnation and left pronation 5/5, right pronation 4/5; B wrist flexion and extension 5/5 PT-OP-Q Treatments Start: 03/05/19 08:10 Freq: Status: Active Protocol: Document 03/14/19 09:50 MB (Rec: 03/14/19 10:26 MB [id number]) Therapeutic Exercises Standing Exercises Racquet ball massage Standing Exercise Name Increased time for education of placement, etc Comments Intrascapular, ER, upper traps PT-OP-T Assessment and Plan Start: 03/05/19 08:10 Freq: Status: Active Protocol: Document 03/14/19 09:50 MB (Rec: 03/14/19 10:26 MB [id number]) Physical Therapy Assessment Goals 5 Assisted Goal (LTG) Pt will perform progressive HEP including breathing, ROM, strengthening, postural and relaxation exercises with I by 05/05/19. LTG Duration 8 weeks 4 Assisted Goal (LTG) Pt will present with improved QuickDASH score to reflect no more than 20% impairment by . LTG Duration 8 weeks 3 Assisted Goal (LTG) Pt will present with improved NDI score to reflect no more than 20% impairment by 05/05/19 . LTG Duration 8 weeks 2 Impairment Weakness Automotive Electrical Helper Goal (LTG) Pt will present with B shoulder flexion and abduction and ER and IR MMT to 5/5 by 05/05/19. LTG Duration 8 weeks 1 Impairment Pain Automotive Electrical Helper Goal (LTG) Pt will report a 50% improvement in neck, B shoulder and right arm pain by 05/05/19. LTG Duration 8 weeks Assessment Summary Assessment Pt tolerates self-massage with peterall well. Con't progression, see treatment focus for next time--ongoing breathing and relaxation techniques. Physical Therapy Plan Frequency and Duration Frequency of Treatment 2x/Week Duration of Treatment 8 weeks Plan of Care Start Date 03/05/19 Plan of Care End Date 05/05/19 Therapeutic Interventions Therapeutic Interventions Balance Training,Home Exercise Program,Joint Mobilizations, Manual Therapy,Neuromuscular Re-education,Patient/Caregiver Education,Self-Care/Home Management,Soft Tissue Mobilization,Taping, Therapeutic Activities, Therapeutic Exercises Modalities Cold Pack/Ice Massage,Electric Stimulation,Hot Packs, Ultrasound Next Visit Focus/Plan Next Note Type Treatment Note Next Visit Plan Initiate Buteyko breathing, scapular ex, cervical ex, possible manual work including rib recoil, neural fascial work. Consider adding progressive muscle relaxation technique.
--- NOTE | 2019-03-19 10:24 | PT.OTN ---
Current Diagnoses Cervicalgia (03/19/19) Neuralgia and neuritis, unspecified (03/19/19) Physical Therapy Treatment Note PT-OP-A Visit Information Start: 03/05/19 08:10 Freq: Status: Active Protocol: Document 03/19/19 09:54 MB (Rec: 03/19/19 10:19 MB [id number]) Out-Patient Physical Therapy Visit Information Visit Information Visit Type Treatment Note Visit Note Pt arrives late to appointment and to go for speech eval right after PT eval, shortened treatment this date. Visit Start Time 09:54 Visit Stop Time 10:24 Total Visit Minutes 30 Visit Number 10/19 Number of COMPRESSOR REPAIRER Visits 0 PT-OP-B Current Condition Start: 03/05/19 08:10 Freq: Status: Active Protocol: Document 03/05/19 09:01 MB (Rec: 03/05/19 09:06 MB [id number]) Current Condition History of Current Condition Onset Date Chronic progressive, greater than 1 year Current Complaints See subjective History of Current Condition See subjective Prior Treatments and Tests PT in 2018, only a few treatments d/t increased stress, move Treatment Goals Patient/Caregiver Goals To decrease pain, be able to breathe more deeply Prior Functional Status Baseline Function- ADL's Independent Baseline Function- Mobility Independent Baseline Function- Recreation/Hobbies Running, would like to keep working out Personal Factors Other Personal Factors That May Effect PTSD, depression Therapy/Recovery PT-OP-C Subjective Start: 03/05/19 08:10 Freq: Status: Active Protocol: Document 03/19/19 09:54 MB (Rec: 03/19/19 10:19 MB [id number]) OP-PT Subjective Patient Comments Patient Comments Pt states that she feels a little sore today. She has a little soreness at her left middle back. She has speech consult after this PT treatment and reports nodules on her vocal cords and some sensory issuess--she can drink hot coffee but gags with cold coffee. PT-OP-J Posture/Palpation/Skin Start: 03/05/19 08:10 Freq: Status: Active Protocol: Document 03/05/19 09:01 MB (Rec: 03/05/19 10:08 MB [id number]) Posture Evaluation Comments Posture Comments Standing posture: decreased cervical lordosis, forward head, mild Dowager's hump, decreased thoracic kyphosis, increased lumbar lordosis, anterior tilt pelvis, right iliac crest mildly higher than the left. PT-OP-K Range of Motion Start: 03/05/19 08:10 Freq: Status: Active Protocol: Document 03/05/19 09:01 MB (Rec: 03/05/19 10:08 MB [id number]) Cervical Spine Range of Motion Cervical Spine Active Testing Position Standing Flexion 45 Extension 35 Rotation Left 40 Rotation Right 40 Lateral Flexion Left 35 Lateral Flexion Right 20 Comments B shoulder flexion and abduction, elbow flexion and extension and pronation and supination and wrist extension and flexion WNLs PT-OP-M Strength Start: 03/05/19 08:10 Freq: Status: Active Protocol: Document 03/05/19 09:01 MB (Rec: 03/05/19 10:08 MB [id number]) Shoulder Strength Shoulder Manual Muscle Testing Right Flexion 4 Good Abduction (C5) 3+ Fair+ External Rotation 5 Normal Internal Rotation 5 Normal Comments Standing Left Flexion 5 Normal Abduction (C5) 5 Normal External Rotation 4 Good Internal Rotation 4 Good Comments Standing Elbow/Forearm Strength Elbow and Forearm Manual Muscle Testing Both Comments B elbow flexion and extension 5/5; B supnation and left pronation 5/5, right pronation 4/5; B wrist flexion and extension 5/5 PT-OP-Q Treatments Start: 03/05/19 08:10 Freq: Status: Active Protocol: Document 03/19/19 09:54 MB (Rec: 03/19/19 10:19 MB [id number]) Therapeutic Exercises Supine Exercises Diaphragmatic breathing Comments Performed in supine Progressive Muscle Relaxation Exercises Comments Initiated these this date, ed to perform with stress, awaken at night Standing Exercises Racquet ball massage Standing Exercise Name Increased time for education of placement, etc Comments Intrascapular, ER, upper traps PT-OP-T Assessment and Plan Start: 03/05/19 08:10 Freq: Status: Active Protocol: Document 03/19/19 09:54 MB (Rec: 03/19/19 10:19 MB [id number]) Physical Therapy Assessment Goals 5 Facility Maintenance Mechanic Goal (LTG) Pt will perform progressive HEP including breathing, ROM, strengthening, postural and relaxation exercises with I by 05/05/19. LTG Duration 8 weeks 4 Facility Maintenance Mechanic Goal (LTG) Pt will present with improved QuickDASH score to reflect no more than 20% impairment by . LTG Duration 8 weeks 3 Facility Maintenance Mechanic Goal (LTG) Pt will present with improved NDI score to reflect no more than 20% impairment by 05/05/19 . LTG Duration 8 weeks 2 Impairment Weakness Facility Maintenance Mechanic Goal (LTG) Pt will present with B shoulder flexion and abduction and ER and IR MMT to 5/5 by 05/05/19. LTG Duration 8 weeks 1 Impairment Pain Fci Goal (LTG) Pt will report a 50% improvement in neck, B shoulder and right arm pain by 05/05/19. LTG Duration 8 weeks Assessment Summary Assessment Initiated progressive muscle relaxation technique today. Progress thoracic mobility, Buteyko breathing and scapular , core and shoulder rotator strengthening. Physical Therapy Plan Frequency and Duration Frequency of Treatment 2x/Week Duration of Treatment 8 weeks Plan of Care Start Date 03/05/19 Plan of Care End Date 05/05/19 Therapeutic Interventions Therapeutic Interventions Balance Training,Home Exercise Program,Joint Mobilizations, Manual Therapy,Neuromuscular Re-education,Patient/Caregiver Education,Self-Care/Home Management,Soft Tissue Mobilization,Taping, Therapeutic Activities, Therapeutic Exercises Modalities Cold Pack/Ice Massage,Electric Stimulation,Hot Packs, Ultrasound Next Visit Focus/Plan Next Note Type Treatment Note Next Visit Plan Initiate Buteyko breathing, scapular ex, cervical ex, possible manual work including rib recoil, neural fascial work.
--- NOTE | 2019-03-21 10:30 | PT.OTN ---
Current Diagnoses Cervicalgia (03/21/19) Neuralgia and neuritis, unspecified (03/21/19) Physical Therapy Treatment Note PT-OP-A Visit Information Start: 03/05/19 08:10 Freq: Status: Active Protocol: Document 03/21/19 09:48 MB (Rec: 03/21/19 10:30 MB [id number]) Out-Patient Physical Therapy Visit Information Visit Information Visit Type Treatment Note Visit Note Pt arrives late to appointment and to go for speech eval right after PT eval, shortened treatment this date. Visit Start Time 09:48 Visit Stop Time 10:26 Total Visit Minutes 38 Visit Number 11/19 Number of CUSTOMER ENGAGEMENT MANAGER Visits 0 PT-OP-B Current Condition Start: 03/05/19 08:10 Freq: Status: Active Protocol: Document 03/05/19 09:01 MB (Rec: 03/05/19 09:06 MB [id number]) Current Condition History of Current Condition Onset Date Chronic progressive, greater than 1 year Current Complaints See subjective History of Current Condition See subjective Prior Treatments and Tests PT in 2018, only a few treatments d/t increased stress, move Treatment Goals Patient/Caregiver Goals To decrease pain, be able to breathe more deeply Prior Functional Status Baseline Function- ADL's Independent Baseline Function- Mobility Independent Baseline Function- Recreation/Hobbies Running, would like to keep working out Personal Factors Other Personal Factors That May Effect PTSD, depression Therapy/Recovery PT-OP-C Subjective Start: 03/05/19 08:10 Freq: Status: Active Protocol: Document 03/21/19 09:48 MB (Rec: 03/21/19 10:30 MB [id number]) OP-PT Subjective Patient Comments Patient Comments Pt states that her neck woke her up last and she had a lot of dreaming. She is learning more about lifting her chest with diaphragmatic breathing. PT-OP-J Posture/Palpation/Skin Start: 03/05/19 08:10 Freq: Status: Active Protocol: Document 03/05/19 09:01 MB (Rec: 03/05/19 10:08 MB [id number]) Posture Evaluation Comments Posture Comments Standing posture: decreased cervical lordosis, forward head, mild Dowager's hump, decreased thoracic kyphosis, increased lumbar lordosis, anterior tilt pelvis, right iliac crest mildly higher than the left. PT-OP-K Range of Motion Start: 03/05/19 08:10 Freq: Status: Active Protocol: Document 03/05/19 09:01 MB (Rec: 03/05/19 10:08 MB [id number]) Cervical Spine Range of Motion Cervical Spine Active Testing Position Standing Flexion 45 Extension 35 Rotation Left 40 Rotation Right 40 Lateral Flexion Left 35 Lateral Flexion Right 20 Comments B shoulder flexion and abduction, elbow flexion and extension and pronation and supination and wrist extension and flexion WNLs PT-OP-M Strength Start: 03/05/19 08:10 Freq: Status: Active Protocol: Document 03/05/19 09:01 MB (Rec: 03/05/19 10:08 MB [id number]) Shoulder Strength Shoulder Manual Muscle Testing Right Flexion 4 Good Abduction (C5) 3+ Fair+ External Rotation 5 Normal Internal Rotation 5 Normal Comments Standing Left Flexion 5 Normal Abduction (C5) 5 Normal External Rotation 4 Good Internal Rotation 4 Good Comments Standing Elbow/Forearm Strength Elbow and Forearm Manual Muscle Testing Both Comments B elbow flexion and extension 5/5; B supnation and left pronation 5/5, right pronation 4/5; B wrist flexion and extension 5/5 PT-OP-Q Treatments Start: 03/05/19 08:10 Freq: Status: Active Protocol: Document 03/21/19 09:48 MB (Rec: 03/21/19 10:30 MB [id number]) Therapeutic Exercises Supine Exercises Diaphragmatic breathing Comments Performed in supine Manual Therapy Treatment Soft Tissue Mobilization Side lying rib recoil Comments Side lying rib recoil and QL work, assist left latissimus relaxation. Treated both sides , tighter on the right. Prone rib recoil and PA mobs thoracic spine grade IV PT-OP-T Assessment and Plan Start: 03/05/19 08:10 Freq: Status: Active Protocol: Document 03/21/19 09:48 MB (Rec: 03/21/19 10:30 MB [id number]) Physical Therapy Assessment Goals 5 Detention Goal (LTG) Pt will perform progressive HEP including breathing, ROM, strengthening, postural and relaxation exercises with I by 05/05/19. LTG Duration 8 weeks 4 Qa Specialist Goal (LTG) Pt will present with improved QuickDASH score to reflect no more than 20% impairment by . LTG Duration 8 weeks 3 Qa Specialist Goal (LTG) Pt will present with improved NDI score to reflect no more than 20% impairment by 05/05/19 . LTG Duration 8 weeks 2 Impairment Weakness Detention Goal (LTG) Pt will present with B shoulder flexion and abduction and ER and IR MMT to 5/5 by 05/05/19. LTG Duration 8 weeks 1 Impairment Pain Qa Specialist Goal (LTG) Pt will report a 50% improvement in neck, B shoulder and right arm pain by 05/05/19. LTG Duration 8 weeks Assessment Summary Assessment Progressed manual rib recoil this date. Progress thoracic mobility, Buteyko breathing and scapular, core and shoulder rotator strengthening . Physical Therapy Plan Frequency and Duration Frequency of Treatment 2x/Week Duration of Treatment 8 weeks Plan of Care Start Date 03/05/19 Plan of Care End Date 05/05/19 Therapeutic Interventions Therapeutic Interventions Balance Training,Home Exercise Program,Joint Mobilizations, Manual Therapy,Neuromuscular Re-education,Patient/Caregiver Education,Self-Care/Home Management,Soft Tissue Mobilization,Taping, Therapeutic Activities, Therapeutic Exercises Modalities Cold Pack/Ice Massage,Electric Stimulation,Hot Packs, Ultrasound Next Visit Focus/Plan Next Note Type Treatment Note Next Visit Plan Initiate Buteyko breathing, scapular ex, cervical ex, possible manual work including rib recoil, neural fascial work. Also consider downward dog.
--- NOTE | 2019-03-26 11:03 | PT.OTN ---
Current Diagnoses Cervicalgia (03/26/19) Neuralgia and neuritis, unspecified (03/26/19) Physical Therapy Treatment Note PT-OP-A Visit Information Start: 03/05/19 08:10 Freq: Status: Active Protocol: Document 03/26/19 10:32 MB (Rec: 03/26/19 11:03 MB [id number]) Out-Patient Physical Therapy Visit Information Visit Information Visit Type Treatment Note Visit Note Pt needs to head out to another appointment and shortened treatment requested. PT's goals was to progress strengthening this date and this could be performed in available time. Visit Start Time 10:32 Visit Stop Time 10:52 Total Visit Minutes 20 Visit Number 12/19 Number of AIRCRAFT STRUCTURAL FITTER Visits 0 PT-OP-B Current Condition Start: 03/05/19 08:10 Freq: Status: Active Protocol: Document 03/05/19 09:01 MB (Rec: 03/05/19 09:06 MB [id number]) Current Condition History of Current Condition Onset Date Chronic progressive, greater than 1 year Current Complaints See subjective History of Current Condition See subjective Prior Treatments and Tests PT in 2018, only a few treatments d/t increased stress, move Treatment Goals Patient/Caregiver Goals To decrease pain, be able to breathe more deeply Prior Functional Status Baseline Function- ADL's Independent Baseline Function- Mobility Independent Baseline Function- Recreation/Hobbies Running, would like to keep working out Personal Factors Other Personal Factors That May Effect PTSD, depression Therapy/Recovery PT-OP-C Subjective Start: 03/05/19 08:10 Freq: Status: Active Protocol: Document 03/26/19 10:32 MB (Rec: 03/26/19 11:03 MB [id number]) OP-PT Subjective Patient Comments Patient Comments Pt is doing well. She con't to have trouble with breathing with running and other tasks. She is working on PT exercises and also cervical isometrics briefly shown by PT in previous treatment date. PT-OP-J Posture/Palpation/Skin Start: 03/05/19 08:10 Freq: Status: Active Protocol: Document 03/05/19 09:01 MB (Rec: 03/05/19 10:08 MB [id number]) Posture Evaluation Comments Posture Comments Standing posture: decreased cervical lordosis, forward head, mild Dowager's hump, decreased thoracic kyphosis, increased lumbar lordosis, anterior tilt pelvis, right iliac crest mildly higher than the left. PT-OP-K Range of Motion Start: 03/05/19 08:10 Freq: Status: Active Protocol: Document 03/05/19 09:01 MB (Rec: 03/05/19 10:08 MB [id number]) Cervical Spine Range of Motion Cervical Spine Active Testing Position Standing Flexion 45 Extension 35 Rotation Left 40 Rotation Right 40 Lateral Flexion Left 35 Lateral Flexion Right 20 Comments B shoulder flexion and abduction, elbow flexion and extension and pronation and supination and wrist extension and flexion WNLs PT-OP-M Strength Start: 03/05/19 08:10 Freq: Status: Active Protocol: Document 03/05/19 09:01 MB (Rec: 03/05/19 10:08 MB [id number]) Shoulder Strength Shoulder Manual Muscle Testing Right Flexion 4 Good Abduction (C5) 3+ Fair+ External Rotation 5 Normal Internal Rotation 5 Normal Comments Standing Left Flexion 5 Normal Abduction (C5) 5 Normal External Rotation 4 Good Internal Rotation 4 Good Comments Standing Elbow/Forearm Strength Elbow and Forearm Manual Muscle Testing Both Comments B elbow flexion and extension 5/5; B supnation and left pronation 5/5, right pronation 4/5; B wrist flexion and extension 5/5 PT-OP-Q Treatments Start: 03/05/19 08:10 Freq: Status: Active Protocol: Document 03/26/19 10:32 MB (Rec: 03/26/19 11:03 MB [id number]) Therapeutic Exercises Standing Exercises Shoulder ER Comments Core tight, elbow at side, level 2 band Scapular retraction with shoulder extension Comments Core tight, elbows straight, level 2 band PT-OP-T Assessment and Plan Start: 03/05/19 08:10 Freq: Status: Active Protocol: Document 03/26/19 10:32 MB (Rec: 03/26/19 11:03 MB [id number]) Physical Therapy Assessment Goals 5 Care Rep Goal (LTG) Pt will perform progressive HEP including breathing, ROM, strengthening, postural and relaxation exercises with I by 05/05/19. LTG Duration 8 weeks 4 Penitentiary Goal (LTG) Pt will present with improved QuickDASH score to reflect no more than 20% impairment by . LTG Duration 8 weeks 3 Care Rep Goal (LTG) Pt will present with improved NDI score to reflect no more than 20% impairment by 05/05/19 . LTG Duration 8 weeks 2 Impairment Weakness Care Rep Goal (LTG) Pt will present with B shoulder flexion and abduction and ER and IR MMT to 5/5 by 05/05/19. LTG Duration 8 weeks 1 Impairment Pain Penitentiary Goal (LTG) Pt will report a 50% improvement in neck, B shoulder and right arm pain by 05/05/19. LTG Duration 8 weeks Assessment Summary Assessment Initiated core, scapular and shoulder strengthening this date. Progress thoracic mobility, Buteyko breathing. Physical Therapy Plan Frequency and Duration Frequency of Treatment 2x/Week Duration of Treatment 8 weeks Plan of Care Start Date 03/05/19 Plan of Care End Date 05/05/19 Therapeutic Interventions Therapeutic Interventions Balance Training,Home Exercise Program,Joint Mobilizations, Manual Therapy,Neuromuscular Re-education,Patient/Caregiver Education,Self-Care/Home Management,Soft Tissue Mobilization,Taping, Therapeutic Activities, Therapeutic Exercises Modalities Cold Pack/Ice Massage,Electric Stimulation,Hot Packs, Ultrasound Next Visit Focus/Plan Next Note Type Treatment Note Next Visit Plan Initiate Buteyko breathing, cervical ex, possible manual work including rib recoil, neural fascial work. Also consider downward dog. Pt needs thoracic mobility improved.
--- NOTE | 2019-03-29 11:19 | PT.OTN ---
Current Diagnoses Cervicalgia (03/29/19) Neuralgia and neuritis, unspecified (03/29/19) Physical Therapy Treatment Note PT-OP-A Visit Information Start: 03/05/19 08:10 Freq: Status: Active Protocol: Document 03/29/19 10:32 MB (Rec: 03/29/19 11:18 MB [id number]) Out-Patient Physical Therapy Visit Information Visit Information Visit Type Treatment Note Visit Start Time 10:32 Visit Stop Time 11:15 Total Visit Minutes 43 Visit Number 01/19 Number of MENTAL HEALTH PROGRAM SPECIALIST Visits 0 PT-OP-B Current Condition Start: 03/05/19 08:10 Freq: Status: Active Protocol: Document 03/05/19 09:01 MB (Rec: 03/05/19 09:06 MB [id number]) Current Condition History of Current Condition Onset Date Chronic progressive, greater than 1 year Current Complaints See subjective History of Current Condition See subjective Prior Treatments and Tests PT in 2018, only a few treatments d/t increased stress, move Treatment Goals Patient/Caregiver Goals To decrease pain, be able to breathe more deeply Prior Functional Status Baseline Function- ADL's Independent Baseline Function- Mobility Independent Baseline Function- Recreation/Hobbies Running, would like to keep working out Personal Factors Other Personal Factors That May Effect PTSD, depression Therapy/Recovery PT-OP-C Subjective Start: 03/05/19 08:10 Freq: Status: Active Protocol: Document 03/29/19 10:32 MB (Rec: 03/29/19 11:18 MB [id number]) OP-PT Subjective Patient Comments Patient Comments Pt states that her right spine does not move as much and her right hip is troublesome with attempted supine pect stretch . PT-OP-J Posture/Palpation/Skin Start: 03/05/19 08:10 Freq: Status: Active Protocol: Document 03/05/19 09:01 MB (Rec: 03/05/19 10:08 MB [id number]) Posture Evaluation Comments Posture Comments Standing posture: decreased cervical lordosis, forward head, mild Dowager's hump, decreased thoracic kyphosis, increased lumbar lordosis, anterior tilt pelvis, right iliac crest mildly higher than the left. PT-OP-K Range of Motion Start: 03/05/19 08:10 Freq: Status: Active Protocol: Document 03/05/19 09:01 MB (Rec: 03/05/19 10:08 MB [id number]) Cervical Spine Range of Motion Cervical Spine Active Testing Position Standing Flexion 45 Extension 35 Rotation Left 40 Rotation Right 40 Lateral Flexion Left 35 Lateral Flexion Right 20 Comments B shoulder flexion and abduction, elbow flexion and extension and pronation and supination and wrist extension and flexion WNLs PT-OP-M Strength Start: 03/05/19 08:10 Freq: Status: Active Protocol: Document 03/05/19 09:01 MB (Rec: 03/05/19 10:08 MB [id number]) Shoulder Strength Shoulder Manual Muscle Testing Right Flexion 4 Good Abduction (C5) 3+ Fair+ External Rotation 5 Normal Internal Rotation 5 Normal Comments Standing Left Flexion 5 Normal Abduction (C5) 5 Normal External Rotation 4 Good Internal Rotation 4 Good Comments Standing Elbow/Forearm Strength Elbow and Forearm Manual Muscle Testing Both Comments B elbow flexion and extension 5/5; B supnation and left pronation 5/5, right pronation 4/5; B wrist flexion and extension 5/5 PT-OP-Q Treatments Start: 03/05/19 08:10 Freq: Status: Active Protocol: Document 03/29/19 10:32 MB (Rec: 03/29/19 11:18 MB [id number]) Therapeutic Exercises Supine Exercises Pelvic realignment exercises Comments Pelvic realignment exercises Standing Exercises Pect stretch Comments Pect stretch Manual Therapy Treatment Other Other Manual Treatments Pt agrees to Counterstrain to assess and treat fascial and lymphatic tension: treated stacks cervical spinal medullaries LV and AINTs anterior cervical nerves PT-OP-T Assessment and Plan Start: 03/05/19 08:10 Freq: Status: Active Protocol: Document 03/29/19 10:32 MB (Rec: 03/29/19 11:18 MB [id number]) Physical Therapy Assessment Goals 5 Disk Grinder Goal (LTG) Pt will perform progressive HEP including breathing, ROM, strengthening, postural and relaxation exercises with I by 05/05/19. LTG Duration 8 weeks 4 Mcfp Goal (LTG) Pt will present with improved QuickDASH score to reflect no more than 20% impairment by . LTG Duration 8 weeks 3 Mcfp Goal (LTG) Pt will present with improved NDI score to reflect no more than 20% impairment by 05/05/19 . LTG Duration 8 weeks 2 Impairment Weakness Mcfp Goal (LTG) Pt will present with B shoulder flexion and abduction and ER and IR MMT to 5/5 by 05/05/19. LTG Duration 8 weeks 1 Impairment Pain Disk Grinder Goal (LTG) Pt will report a 50% improvement in neck, B shoulder and right arm pain by 05/05/19. LTG Duration 8 weeks Assessment Summary Assessment Initiated alignment exercises to help with posture. Physical Therapy Plan Frequency and Duration Frequency of Treatment 2x/Week Duration of Treatment 8 weeks Plan of Care Start Date 03/05/19 Plan of Care End Date 05/05/19 Therapeutic Interventions Therapeutic Interventions Balance Training,Home Exercise Program,Joint Mobilizations, Manual Therapy,Neuromuscular Re-education,Patient/Caregiver Education,Self-Care/Home Management,Soft Tissue Mobilization,Taping, Therapeutic Activities, Therapeutic Exercises Modalities Cold Pack/Ice Massage,Electric Stimulation,Hot Packs, Ultrasound Next Visit Focus/Plan Next Note Type Treatment Note Next Visit Plan Initiate Buteyko breathing, cervical ex, possible manual work including rib recoil, neural fascial work. Also consider downward dog. Pt needs thoracic mobility improved.
--- NOTE | 2019-04-02 11:12 | PT.OTN ---
Current Diagnoses Cervicalgia (04/02/19) Neuralgia and neuritis, unspecified (04/02/19) Physical Therapy Treatment Note PT-OP-A Visit Information Start: 03/05/19 08:10 Freq: Status: Active Protocol: Document 04/02/19 10:32 MB (Rec: 04/02/19 11:12 MB [id number]) Out-Patient Physical Therapy Visit Information Visit Information Visit Type Treatment Note Visit Start Time 10:32 Visit Stop Time 11:12 Total Visit Minutes 40 Visit Number 02/19 Number of AIRCRAFT LAYOUT WORKER Visits 0 PT-OP-B Current Condition Start: 03/05/19 08:10 Freq: Status: Active Protocol: Document 03/05/19 09:01 MB (Rec: 03/05/19 09:06 MB [id number]) Current Condition History of Current Condition Onset Date Chronic progressive, greater than 1 year Current Complaints See subjective History of Current Condition See subjective Prior Treatments and Tests PT in 2018, only a few treatments d/t increased stress, move Treatment Goals Patient/Caregiver Goals To decrease pain, be able to breathe more deeply Prior Functional Status Baseline Function- ADL's Independent Baseline Function- Mobility Independent Baseline Function- Recreation/Hobbies Running, would like to keep working out Personal Factors Other Personal Factors That May Effect PTSD, depression Therapy/Recovery PT-OP-C Subjective Start: 03/05/19 08:10 Freq: Status: Active Protocol: Document 04/02/19 10:32 MB (Rec: 04/02/19 11:12 MB [id number]) OP-PT Subjective Patient Comments Patient Comments Pt states that she has increased right upper traps tension. She was performing justin chair and it slipped. She had her massage it last night. She is serving her papers this evening. Her roommate is moving and she has had stress in this relationship. PT-OP-J Posture/Palpation/Skin Start: 03/05/19 08:10 Freq: Status: Active Protocol: Document 03/05/19 09:01 MB (Rec: 03/05/19 10:08 MB [id number]) Posture Evaluation Comments Posture Comments Standing posture: decreased cervical lordosis, forward head, mild Dowager's hump, decreased thoracic kyphosis, increased lumbar lordosis, anterior tilt pelvis, right iliac crest mildly higher than the left. PT-OP-K Range of Motion Start: 03/05/19 08:10 Freq: Status: Active Protocol: Document 03/05/19 09:01 MB (Rec: 03/05/19 10:08 MB [id number]) Cervical Spine Range of Motion Cervical Spine Active Testing Position Standing Flexion 45 Extension 35 Rotation Left 40 Rotation Right 40 Lateral Flexion Left 35 Lateral Flexion Right 20 Comments B shoulder flexion and abduction, elbow flexion and extension and pronation and supination and wrist extension and flexion WNLs PT-OP-M Strength Start: 03/05/19 08:10 Freq: Status: Active Protocol: Document 03/05/19 09:01 MB (Rec: 03/05/19 10:08 MB [id number]) Shoulder Strength Shoulder Manual Muscle Testing Right Flexion 4 Good Abduction (C5) 3+ Fair+ External Rotation 5 Normal Internal Rotation 5 Normal Comments Standing Left Flexion 5 Normal Abduction (C5) 5 Normal External Rotation 4 Good Internal Rotation 4 Good Comments Standing Elbow/Forearm Strength Elbow and Forearm Manual Muscle Testing Both Comments B elbow flexion and extension 5/5; B supnation and left pronation 5/5, right pronation 4/5; B wrist flexion and extension 5/5 PT-OP-Q Treatments Start: 03/05/19 08:10 Freq: Status: Active Protocol: Document 04/02/19 10:32 MB (Rec: 04/02/19 11:12 MB [id number]) Manual Therapy Treatment Manual Techniques STM and MWM Comments Right infraspinatus, B upper traps and middle scalenes, MWM , pt performing motion and PT providing trigger point pressure, B first rib isometric, suboccipital release PT-OP-T Assessment and Plan Start: 03/05/19 08:10 Freq: Status: Active Protocol: Document 04/02/19 10:32 MB (Rec: 04/02/19 11:12 MB [id number]) Physical Therapy Assessment Goals 5 Half-Way Goal (LTG) Pt will perform progressive HEP including breathing, ROM, strengthening, postural and relaxation exercises with I by 05/05/19. LTG Duration 8 weeks 4 Half-Way Goal (LTG) Pt will present with improved QuickDASH score to reflect no more than 20% impairment by . LTG Duration 8 weeks 3 Half-Way Goal (LTG) Pt will present with improved NDI score to reflect no more than 20% impairment by 05/05/19 . LTG Duration 8 weeks 2 Impairment Weakness Recruiter Specialist Goal (LTG) Pt will present with B shoulder flexion and abduction and ER and IR MMT to 5/5 by 05/05/19. LTG Duration 8 weeks 1 Impairment Pain Half-Way Goal (LTG) Pt will report a 50% improvement in neck, B shoulder and right arm pain by 05/05/19. LTG Duration 8 weeks Assessment Summary Assessment Ed pt to avoid sit ups that increase anterior neck tension . This may have flared up her right traps/levator. Physical Therapy Plan Frequency and Duration Frequency of Treatment 2x/Week Duration of Treatment 8 weeks Plan of Care Start Date 03/05/19 Plan of Care End Date 05/05/19 Therapeutic Interventions Therapeutic Interventions Balance Training,Home Exercise Program,Joint Mobilizations, Manual Therapy,Neuromuscular Re-education,Patient/Caregiver Education,Self-Care/Home Management,Soft Tissue Mobilization,Taping, Therapeutic Activities, Therapeutic Exercises Modalities Cold Pack/Ice Massage,Electric Stimulation,Hot Packs, Ultrasound Next Visit Focus/Plan Next Note Type Treatment Note Next Visit Plan Self-massage upper traps, infra. Initiate Buteyko breathing, cervical ex. Also consider downward dog. Pt needs thoracic mobility improved.
--- NOTE | 2019-04-04 11:09 | PT.OTN ---
Current Diagnoses Cervicalgia (04/04/19) Neuralgia and neuritis, unspecified (04/04/19) Physical Therapy Treatment Note PT-OP-A Visit Information Start: 03/05/19 08:10 Freq: Status: Active Protocol: Document 04/04/19 10:31 MB (Rec: 04/04/19 11:09 MB [id number]) Out-Patient Physical Therapy Visit Information Visit Information Visit Type Treatment Note Visit Start Time 10:31 Visit Stop Time 11:09 Total Visit Minutes 38 Visit Number 03/21 Number of BUILDING MAINTENANCE REPAIRER Visits 0 PT-OP-B Current Condition Start: 03/05/19 08:10 Freq: Status: Active Protocol: Document 03/05/19 09:01 MB (Rec: 03/05/19 09:06 MB [id number]) Current Condition History of Current Condition Onset Date Chronic progressive, greater than 1 year Current Complaints See subjective History of Current Condition See subjective Prior Treatments and Tests PT in 2018, only a few treatments d/t increased stress, move Treatment Goals Patient/Caregiver Goals To decrease pain, be able to breathe more deeply Prior Functional Status Baseline Function- ADL's Independent Baseline Function- Mobility Independent Baseline Function- Recreation/Hobbies Running, would like to keep working out Personal Factors Other Personal Factors That May Effect PTSD, depression Therapy/Recovery PT-OP-C Subjective Start: 03/05/19 08:10 Freq: Status: Active Protocol: Document 04/04/19 10:31 MB (Rec: 04/04/19 11:09 MB [id number]) OP-PT Subjective Patient Comments Patient Comments Pt states that she is feeling better. Her right arm is not falling asleep as much as it was. She is not waking up to neck pain. She had increased stress at home and has been staying with a neighbor. PT-OP-J Posture/Palpation/Skin Start: 03/05/19 08:10 Freq: Status: Active Protocol: Document 03/05/19 09:01 MB (Rec: 03/05/19 10:08 MB [id number]) Posture Evaluation Comments Posture Comments Standing posture: decreased cervical lordosis, forward head, mild Dowager's hump, decreased thoracic kyphosis, increased lumbar lordosis, anterior tilt pelvis, right iliac crest mildly higher than the left. PT-OP-K Range of Motion Start: 03/05/19 08:10 Freq: Status: Active Protocol: Document 03/05/19 09:01 MB (Rec: 03/05/19 10:08 MB [id number]) Cervical Spine Range of Motion Cervical Spine Active Testing Position Standing Flexion 45 Extension 35 Rotation Left 40 Rotation Right 40 Lateral Flexion Left 35 Lateral Flexion Right 20 Comments B shoulder flexion and abduction, elbow flexion and extension and pronation and supination and wrist extension and flexion WNLs PT-OP-M Strength Start: 03/05/19 08:10 Freq: Status: Active Protocol: Document 03/05/19 09:01 MB (Rec: 03/05/19 10:08 MB [id number]) Shoulder Strength Shoulder Manual Muscle Testing Right Flexion 4 Good Abduction (C5) 3+ Fair+ External Rotation 5 Normal Internal Rotation 5 Normal Comments Standing Left Flexion 5 Normal Abduction (C5) 5 Normal External Rotation 4 Good Internal Rotation 4 Good Comments Standing Elbow/Forearm Strength Elbow and Forearm Manual Muscle Testing Both Comments B elbow flexion and extension 5/5; B supnation and left pronation 5/5, right pronation 4/5; B wrist flexion and extension 5/5 PT-OP-Q Treatments Start: 03/05/19 08:10 Freq: Status: Active Protocol: Document 04/04/19 10:31 MB (Rec: 04/04/19 11:09 MB [id number]) Therapeutic Exercises Standing Exercises Racquet ball massage Comments Intrascapular, infraspinatus, upper traps, MWM and self- massage, added HEP Manual Therapy Treatment Manual Techniques STM and MWM Comments B SCM with pt performing AROM rotation B and PT providing pressure at trigger point Other Other Manual Treatments Suboccipital release PT-OP-T Assessment and Plan Start: 03/05/19 08:10 Freq: Status: Active Protocol: Document 04/04/19 10:31 MB (Rec: 04/04/19 11:09 MB [id number]) Physical Therapy Assessment Goals 5 Fdc Goal (LTG) Pt will perform progressive HEP including breathing, ROM, strengthening, postural and relaxation exercises with I by 05/05/19. LTG Duration 8 weeks 4 Field Recruiter Goal (LTG) Pt will present with improved QuickDASH score to reflect no more than 20% impairment by . LTG Duration 8 weeks 3 Field Recruiter Goal (LTG) Pt will present with improved NDI score to reflect no more than 20% impairment by 05/05/19 . LTG Duration 8 weeks 2 Impairment Weakness Fdc Goal (LTG) Pt will present with B shoulder flexion and abduction and ER and IR MMT to 5/5 by 05/05/19. LTG Duration 8 weeks 1 Impairment Pain Field Recruiter Goal (LTG) Pt will report a 50% improvement in neck, B shoulder and right arm pain by 05/05/19. LTG Duration 8 weeks Assessment Summary Assessment Initiated further racTargeter Appt ball work this date for MWM to assist with cervical and shoulder flexibility and decreasing pain. She still want to do Karthik curls for abs . She is being more careful. Physical Therapy Plan Frequency and Duration Frequency of Treatment 2x/Week Duration of Treatment 8 weeks Plan of Care Start Date 03/05/19 Plan of Care End Date 05/05/19 Therapeutic Interventions Therapeutic Interventions Balance Training,Home Exercise Program,Joint Mobilizations, Manual Therapy,Neuromuscular Re-education,Patient/Caregiver Education,Self-Care/Home Management,Soft Tissue Mobilization,Taping, Therapeutic Activities, Therapeutic Exercises Modalities Cold Pack/Ice Massage,Electric Stimulation,Hot Packs, Ultrasound Next Visit Focus/Plan Next Note Type Treatment Note Next Visit Plan Initiate Buteyko breathing, cervical ex. Also consider downward dog. Pt needs thoracic mobility improved.
--- NOTE | 2019-04-09 11:14 | PT.OTN ---
Current Diagnoses Cervicalgia (04/09/19) Neuralgia and neuritis, unspecified (04/09/19) Physical Therapy Treatment Note PT-OP-A Visit Information Start: 03/05/19 08:10 Freq: Status: Active Protocol: Document 04/09/19 10:33 MB (Rec: 04/09/19 11:14 MB [id number]) Out-Patient Physical Therapy Visit Information Visit Information Visit Type Treatment Note Visit Start Time 10:33 Visit Stop Time 11:13 Total Visit Minutes 40 Visit Number 04/21 Number of BODY TRIMMER UPHOLSTERER Visits 0 PT-OP-B Current Condition Start: 03/05/19 08:10 Freq: Status: Active Protocol: Document 03/05/19 09:01 MB (Rec: 03/05/19 09:06 MB [id number]) Current Condition History of Current Condition Onset Date Chronic progressive, greater than 1 year Current Complaints See subjective History of Current Condition See subjective Prior Treatments and Tests PT in 2018, only a few treatments d/t increased stress, move Treatment Goals Patient/Caregiver Goals To decrease pain, be able to breathe more deeply Prior Functional Status Baseline Function- ADL's Independent Baseline Function- Mobility Independent Baseline Function- Recreation/Hobbies Running, would like to keep working out Personal Factors Other Personal Factors That May Effect PTSD, depression Therapy/Recovery PT-OP-C Subjective Start: 03/05/19 08:10 Freq: Status: Active Protocol: Document 04/09/19 10:33 MB (Rec: 04/09/19 11:14 MB [id number]) OP-PT Subjective Patient Comments Patient Comments Pt reports she is having some trouble sleeping with the lunar cycle. She has been sleeping on a hideaway bed at her friend's and there are dogs in the bed. PT-OP-J Posture/Palpation/Skin Start: 03/05/19 08:10 Freq: Status: Active Protocol: Document 03/05/19 09:01 MB (Rec: 03/05/19 10:08 MB [id number]) Posture Evaluation Comments Posture Comments Standing posture: decreased cervical lordosis, forward head, mild Dowager's hump, decreased thoracic kyphosis, increased lumbar lordosis, anterior tilt pelvis, right iliac crest mildly higher than the left. PT-OP-K Range of Motion Start: 03/05/19 08:10 Freq: Status: Active Protocol: Document 03/05/19 09:01 MB (Rec: 03/05/19 10:08 MB [id number]) Cervical Spine Range of Motion Cervical Spine Active Testing Position Standing Flexion 45 Extension 35 Rotation Left 40 Rotation Right 40 Lateral Flexion Left 35 Lateral Flexion Right 20 Comments B shoulder flexion and abduction, elbow flexion and extension and pronation and supination and wrist extension and flexion WNLs PT-OP-M Strength Start: 03/05/19 08:10 Freq: Status: Active Protocol: Document 03/05/19 09:01 MB (Rec: 03/05/19 10:08 MB [id number]) Shoulder Strength Shoulder Manual Muscle Testing Right Flexion 4 Good Abduction (C5) 3+ Fair+ External Rotation 5 Normal Internal Rotation 5 Normal Comments Standing Left Flexion 5 Normal Abduction (C5) 5 Normal External Rotation 4 Good Internal Rotation 4 Good Comments Standing Elbow/Forearm Strength Elbow and Forearm Manual Muscle Testing Both Comments B elbow flexion and extension 5/5; B supnation and left pronation 5/5, right pronation 4/5; B wrist flexion and extension 5/5 PT-OP-Q Treatments Start: 03/05/19 08:10 Freq: Status: Active Protocol: Document 04/09/19 10:33 MB (Rec: 04/09/19 11:14 MB [id number]) Therapeutic Exercises Supine Exercises Buteyklo Breathing Reps/Minutes Third trial 38 sec; 4th 38 sec ; 5th 46 sec Comments Reduced breathing 1: 13 sec; 25 sec; ed pt to perform supine d/t HR 55-57 Diaphragmatic breathing Comments Performed today Standing Exercises Racquet ball massage Comments Intrascapular, infraspinatus, upper traps, MWM and self- massage, added HEP PT-OP-T Assessment and Plan Start: 03/05/19 08:10 Freq: Status: Active Protocol: Document 04/09/19 10:33 MB (Rec: 04/09/19 11:14 MB [id number]) Physical Therapy Assessment Goals 5 Half-Way Goal (LTG) Pt will perform progressive HEP including breathing, ROM, strengthening, postural and relaxation exercises with I by 05/05/19. LTG Duration 8 weeks 4 Half-Way Goal (LTG) Pt will present with improved QuickDASH score to reflect no more than 20% impairment by . LTG Duration 8 weeks 3 Interlocking Pavement Installer Goal (LTG) Pt will present with improved NDI score to reflect no more than 20% impairment by 05/05/19 . LTG Duration 8 weeks 2 Impairment Weakness Interlocking Pavement Installer Goal (LTG) Pt will present with B shoulder flexion and abduction and ER and IR MMT to 5/5 by 05/05/19. LTG Duration 8 weeks 1 Impairment Pain Interlocking Pavement Installer Goal (LTG) Pt will report a 50% improvement in neck, B shoulder and right arm pain by 05/05/19. LTG Duration 8 weeks Assessment Summary Assessment Initiated Buteyko breathing this date to assist with parasympathetic response and assist with sleeping d/t pt reports increased upper traps tingling and pain d/t current sleeping issues at friend's house, etc. Ed to perform in supine only d/t low HR and to stop if light-headed. Encouraged pt to talk with doctor about stopping smoking cannibas given her ongoing reports of unable to move her ribs. Physical Therapy Plan Frequency and Duration Frequency of Treatment 2x/Week Duration of Treatment 8 weeks Plan of Care Start Date 03/05/19 Plan of Care End Date 05/05/19 Therapeutic Interventions Therapeutic Interventions Balance Training,Home Exercise Program,Joint Mobilizations, Manual Therapy,Neuromuscular Re-education,Patient/Caregiver Education,Self-Care/Home Management,Soft Tissue Mobilization,Taping, Therapeutic Activities, Therapeutic Exercises Modalities Cold Pack/Ice Massage,Electric Stimulation,Hot Packs, Ultrasound Next Visit Focus/Plan Next Note Type Treatment Note Next Visit Plan Consider downward dog. Pt needs thoracic mobility improved.
--- NOTE | 2019-04-11 11:14 | PT.OTN ---
Current Diagnoses Cervicalgia (04/11/19) Neuralgia and neuritis, unspecified (04/11/19) Physical Therapy Treatment Note PT-OP-A Visit Information Start: 03/05/19 08:10 Freq: Status: Active Protocol: Document 04/11/19 10:33 MB (Rec: 04/11/19 11:14 MB [id number]) Out-Patient Physical Therapy Visit Information Visit Information Visit Type Treatment Note Visit Start Time 10:33 Visit Stop Time 11:13 Total Visit Minutes 40 Visit Number 05/21 Number of PASTORAL WORKER Visits 0 PT-OP-B Current Condition Start: 03/05/19 08:10 Freq: Status: Active Protocol: Document 03/05/19 09:01 MB (Rec: 03/05/19 09:06 MB [id number]) Current Condition History of Current Condition Onset Date Chronic progressive, greater than 1 year Current Complaints See subjective History of Current Condition See subjective Prior Treatments and Tests PT in 2018, only a few treatments d/t increased stress, move Treatment Goals Patient/Caregiver Goals To decrease pain, be able to breathe more deeply Prior Functional Status Baseline Function- ADL's Independent Baseline Function- Mobility Independent Baseline Function- Recreation/Hobbies Running, would like to keep working out Personal Factors Other Personal Factors That May Effect PTSD, depression Therapy/Recovery PT-OP-C Subjective Start: 03/05/19 08:10 Freq: Status: Active Protocol: Document 04/11/19 10:33 MB (Rec: 04/11/19 11:14 MB [id number]) OP-PT Subjective Patient Comments Patient Comments Pt states that her teeth are troublesome and affect her chewing and diet. She has had a rough week with not taking her medications correctly d/t how they were dispensed. She has not exercised like normal. She is getting the medications sorted out. Pt states that she can do deep breathing better than she has ever been able to do. PT-OP-J Posture/Palpation/Skin Start: 03/05/19 08:10 Freq: Status: Active Protocol: Document 03/05/19 09:01 MB (Rec: 03/05/19 10:08 MB [id number]) Posture Evaluation Comments Posture Comments Standing posture: decreased cervical lordosis, forward head, mild Dowager's hump, decreased thoracic kyphosis, increased lumbar lordosis, anterior tilt pelvis, right iliac crest mildly higher than the left. PT-OP-K Range of Motion Start: 03/05/19 08:10 Freq: Status: Active Protocol: Document 03/05/19 09:01 MB (Rec: 03/05/19 10:08 MB [id number]) Cervical Spine Range of Motion Cervical Spine Active Testing Position Standing Flexion 45 Extension 35 Rotation Left 40 Rotation Right 40 Lateral Flexion Left 35 Lateral Flexion Right 20 Comments B shoulder flexion and abduction, elbow flexion and extension and pronation and supination and wrist extension and flexion WNLs PT-OP-M Strength Start: 03/05/19 08:10 Freq: Status: Active Protocol: Document 03/05/19 09:01 MB (Rec: 03/05/19 10:08 MB [id number]) Shoulder Strength Shoulder Manual Muscle Testing Right Flexion 4 Good Abduction (C5) 3+ Fair+ External Rotation 5 Normal Internal Rotation 5 Normal Comments Standing Left Flexion 5 Normal Abduction (C5) 5 Normal External Rotation 4 Good Internal Rotation 4 Good Comments Standing Elbow/Forearm Strength Elbow and Forearm Manual Muscle Testing Both Comments B elbow flexion and extension 5/5; B supnation and left pronation 5/5, right pronation 4/5; B wrist flexion and extension 5/5 PT-OP-Q Treatments Start: 03/05/19 08:10 Freq: Status: Active Protocol: Document 04/11/19 10:33 MB (Rec: 04/11/19 11:14 MB [id number]) Therapeutic Exercises Supine Exercises Buteyklo Breathing Comments Buteyko 1 (40 sec), 3 (30 sec) , sinus decongestion, sinus decongestion Manual Therapy Treatment Manual Techniques Suboccipital release and gentle cervical PROM Comments Performed this date PT-OP-T Assessment and Plan Start: 03/05/19 08:10 Freq: Status: Active Protocol: Document 04/11/19 10:33 MB (Rec: 04/11/19 11:14 MB [id number]) Physical Therapy Assessment Goals 5 Yard Goods Salesperson Goal (LTG) Pt will perform progressive HEP including breathing, ROM, strengthening, postural and relaxation exercises with I by 05/05/19. LTG Duration 8 weeks 4 Yard Goods Salesperson Goal (LTG) Pt will present with improved QuickDASH score to reflect no more than 20% impairment by . LTG Duration 8 weeks 3 Yard Goods Salesperson Goal (LTG) Pt will present with improved NDI score to reflect no more than 20% impairment by 05/05/19 . LTG Duration 8 weeks 2 Impairment Weakness Yard Goods Salesperson Goal (LTG) Pt will present with B shoulder flexion and abduction and ER and IR MMT to 5/5 by 05/05/19. LTG Duration 8 weeks 1 Impairment Pain Yard Goods Salesperson Goal (LTG) Pt will report a 50% improvement in neck, B shoulder and right arm pain by 05/05/19. LTG Duration 8 weeks Assessment Summary Assessment Continued Buteyko breathing progression for relaxation and to promote nitric oxide exchange and parasympathetic response. Physical Therapy Plan Frequency and Duration Frequency of Treatment 2x/Week Duration of Treatment 8 weeks Plan of Care Start Date 03/05/19 Plan of Care End Date 05/05/19 Therapeutic Interventions Therapeutic Interventions Balance Training,Home Exercise Program,Joint Mobilizations, Manual Therapy,Neuromuscular Re-education,Patient/Caregiver Education,Self-Care/Home Management,Soft Tissue Mobilization,Taping, Therapeutic Activities, Therapeutic Exercises Modalities Cold Pack/Ice Massage,Electric Stimulation,Hot Packs, Ultrasound Next Visit Focus/Plan Next Note Type Treatment Note Next Visit Plan Consider downward dog. Pt needs thoracic mobility improved.
--- NOTE | 2019-04-16 11:06 | PT.OTN ---
Current Diagnoses Cervicalgia (04/16/19) Neuralgia and neuritis, unspecified (04/16/19) Physical Therapy Treatment Note PT-OP-A Visit Information Start: 03/05/19 08:10 Freq: Status: Active Protocol: Document 04/16/19 10:30 MB (Rec: 04/16/19 11:06 MB [id number]) Out-Patient Physical Therapy Visit Information Visit Information Visit Type Treatment Note Visit Start Time 10:30 Visit Stop Time 11:04 Total Visit Minutes 34 Visit Number Number of OIL AND GAS WELL TREATMENT OPERATOR Visits 0 PT-OP-B Current Condition Start: 03/05/19 08:10 Freq: Status: Active Protocol: Document 03/05/19 09:01 MB (Rec: 03/05/19 09:06 MB [id number]) Current Condition History of Current Condition Onset Date Chronic progressive, greater than 1 year Current Complaints See subjective History of Current Condition See subjective Prior Treatments and Tests PT in 2018, only a few treatments d/t increased stress, move Treatment Goals Patient/Caregiver Goals To decrease pain, be able to breathe more deeply Prior Functional Status Baseline Function- ADL's Independent Baseline Function- Mobility Independent Baseline Function- Recreation/Hobbies Running, would like to keep working out Personal Factors Other Personal Factors That May Effect PTSD, depression Therapy/Recovery PT-OP-C Subjective Start: 03/05/19 08:10 Freq: Status: Active Protocol: Document 04/16/19 10:30 MB (Rec: 04/16/19 11:06 MB [id number]) OP-PT Subjective Patient Comments Patient Comments Pt states that overall she is feeling pretty good. She notices that if she colors too long that she has some numbness and pain in her right wrist and fingers. She understands HEP and is performing is performing exercises consistently. She thinks that breathing exercises are particularly helpful. PT-OP-J Posture/Palpation/Skin Start: 03/05/19 08:10 Freq: Status: Active Protocol: Document 03/05/19 09:01 MB (Rec: 03/05/19 10:08 MB [id number]) Posture Evaluation Comments Posture Comments Standing posture: decreased cervical lordosis, forward head, mild Dowager's hump, decreased thoracic kyphosis, increased lumbar lordosis, anterior tilt pelvis, right iliac crest mildly higher than the left. PT-OP-K Range of Motion Start: 03/05/19 08:10 Freq: Status: Active Protocol: Document 03/05/19 09:01 MB (Rec: 03/05/19 10:08 MB [id number]) Cervical Spine Range of Motion Cervical Spine Active Testing Position Standing Flexion 45 Extension 35 Rotation Left 40 Rotation Right 40 Lateral Flexion Left 35 Lateral Flexion Right 20 Comments B shoulder flexion and abduction, elbow flexion and extension and pronation and supination and wrist extension and flexion WNLs PT-OP-M Strength Start: 03/05/19 08:10 Freq: Status: Active Protocol: Document 03/05/19 09:01 MB (Rec: 03/05/19 10:08 MB [id number]) Shoulder Strength Shoulder Manual Muscle Testing Right Flexion 4 Good Abduction (C5) 3+ Fair+ External Rotation 5 Normal Internal Rotation 5 Normal Comments Standing Left Flexion 5 Normal Abduction (C5) 5 Normal External Rotation 4 Good Internal Rotation 4 Good Comments Standing Elbow/Forearm Strength Elbow and Forearm Manual Muscle Testing Both Comments B elbow flexion and extension 5/5; B supnation and left pronation 5/5, right pronation 4/5; B wrist flexion and extension 5/5 PT-OP-Q Treatments Start: 03/05/19 08:10 Freq: Status: Active Protocol: Document 04/16/19 10:30 MB (Rec: 04/16/19 11:06 MB [id number]) Therapeutic Exercises Supine Exercises Pelvic realignment exercises Comments Performed this date Diaphragmatic breathing Comments Performed this date Standing Exercises Pect stretch Comments Performed in doorway today Scapular retraction with shoulder extension Comments Performed this date with level 2 band Racquet ball massage Comments Intrascapular, infraspinatus, upper traps, MWM and self- massage, added HEP PT-OP-T Assessment and Plan Start: 03/05/19 08:10 Freq: Status: Active Protocol: Document 04/16/19 10:30 MB (Rec: 04/16/19 11:06 MB [id number]) Physical Therapy Assessment Goals 5 Halfway Goal (LTG) Pt will perform progressive HEP including breathing, ROM, strengthening, postural and relaxation exercises with I by 05/05/19. Added downward dog. 04/16/19: Pt is I with all exercises LTG Duration 8 weeks 4 Piano Instructor Goal (LTG) Pt will present with improved QuickDASH score to reflect no more than 20% impairment by . 04/16/19: Pt has met QuickDASH score reflecting 6.818% impairment LTG Duration 8 weeks 3 Piano Instructor Goal (LTG) Pt will present with improved NDI score to reflect no more than 20% impairment by 05/05/19 . 04/16/19: Pt has met NDI score reflecting 4% impairment. LTG Duration 8 weeks 2 Impairment Weakness Halfway Goal (LTG) Pt will present with B shoulder flexion and abduction and ER and IR MMT to 5/5 by 05/05/19. 04/16/19: Pt presents with B shoulder flexion, abduction, ER and IR to 5/5 with MMT this date LTG Duration 8 weeks 1 Impairment Pain Piano Instructor Goal (LTG) Pt will report a 50% improvement in neck, B shoulder and right arm pain by 05/05/19. 04/16/19: Pt reports at least 50% improvement in neck pain LTG Duration 8 weeks Assessment Summary Assessment Pt has met all PT goals including QuickDASH and NDI scores reflecting improved function, shoulder strength, performance of exercises with I and reports of improvement in pain. She has no more OPPT needs. Will d/c PT. Physical Therapy Plan Discharge Physical Therapy Discharge Comments See assessment comments today.
== END 2019-04-18 08:31 ==
LOC: PHYS 10:30
PROVIDERS: PCP Family Medicine; Visit Provider Family Medicine
DX: M54.2 Cervicalgia (principal); M79.2 Neuralgia and neuritis, unspecified
CPT/HCPCS: 97110; 97140; 97161

== ENCOUNTER → 2019-04-16 11:28 | Outpatient (CLI) | payer OTHER, MEDICAID, SELFPAY ==
--- NOTE | 2019-04-16 | DI.RAD.S_ITS ---
PROCEDURE: FL BARIUM SWALLOW W SPEECH INDICATIONS: Dysphagia, oropharyngeal phase TECHNIQUE: Examination was conducted in conjunction with speech pathology per standard protocol. In the lateral projection, filming was performed of the patient swallowing. AP projection filming may also be performed with patient swallowing. COMPARISON: None. FINDINGS: Function: The oral preparatory phase appears normal, with proper containment. The subsequent oral propulsive phase, pharyngeal phase, and esophageal phase of swallowing also appear generally normal with all proffered substances. Several voids of anterior penetration above the true vocal cords was seen over the course of this study, and one episode of slight aspiration below the true vocal cord level was observed. No laryngotracheal penetration or aspiration. No pathologic vallecular pooling. Morphology: No cricopharyngeal bar is identified. No cervical esophageal webs. No Zenker's diverticulum. No malignant appearing strictures. There was only slight delay during swallowing of a calibrated 13 mm barium tablet distal esophagus, but no IMPRESSION: Slight amount of anterior penetration and single episode of very mild aspiration of ingested contrast to a level below the true vocal cords was observed. Please also refer to the dedicated speech therapy report from high-resolution radiography obtained during the course of the study, which will be independently generated. Dictated by: Adarsh Lopez M.D. on 04/16/2019 at 13:07 Approved by: Adarsh Lopez M.D. on 04/16/2019 at 13:09
--- NOTE | 2019-04-22 17:49 | ST.SWALLOW ---
Visit Care Team Role Provider Type Debby Qureshi DO Attending Provider Physician Primary Care Provider Specialty: Family Practice Address: [address] [place] [address], [facility], [place], [address] Email: [email or web address] Modified Barium Swallow Study PRESS PIPE INSPECTOR Modified Barium Swallow Study Start: 04/16/19 18:10 Freq: Status: Active Protocol: Document 04/22/19 16:52 MO (Rec: 04/22/19 17:16 MO [id number]) Modified Barium Swallow Study Total Time Visit Start Time 11:30 Visit Stop Time 12:00 Total Visit Minutes 30 Referral Reason for Referral Dysphagia; MBS recommended by outpatient PRESS PIPE INSPECTOR Setting Setting Outpatient Care Patient Information Identification Type Name Patient History This 49-yr-old female is being seen by this clinician for outpatient dysphagia and dysphonia treatment. The pt complains of and exhibits frequent belching with oral intake and complains of sticking sensation at base of throat. No overt s/sx of aspiration were observed with clinical bedside evaluation, and the pt has initiated exercises to improve strength, coordination and ROM of pharyngeal and laryngeal musculature to improve function and comfort with swallowing. MBSS was recommended for further evaluation and to guide POC. The pt reports a history of GERD, IBS, bipolar disorder, ADHD, and allergies. Recent videostroboscopy by ENT revealed small cystic lesion on left VF. IBS is untreated, per pt report. Subjective Observations The pt arrived on time and was compliant with all instructions throughout the study. Patient Positioning Position View Lat-A/P Imaging Lateral View Textures Administered Trials Presented Thin Liquid via Spoon,Thin Liquid via Cup,Thin Liquid via Straw,Sturgis Liquid via Spoon ,Sturgis Liquid via Cup,Honey Liquid via Spoon,Dysphagia Blenderized Textures,Regular Textures Oral Phase Source: MBSIMP (TM) (C) Bolus Specific Scoring Grid Lip Closure No Impairment (WNL) Tongue Control During Bolus Hold No Impairment (WNL) Bolus Prep/Mastication Minimal Impairment Bolus Transport/Lingual Motion No Impairment (WNL) A/P Lingual Propulsion Delay No Oral Residue Mild Impairment Residue Clearing WFL Nasal Regurgitation No Additional Oral Phase Observations Oral Peripheral Exam: All facial and oral structures are symmetrical and WNL of strength, coordinatin and ROM. Soft palate elevates upon phonation. The pt is missing several upper and lower molars bilaterally and has one broken left lower molar. Front upper/lower teeth are in good condition. Oral Phase: WFL. Due to dentition, mastication is munching in nature but functional. Mild oral residue cleared sufficiently with subsequent swallows. Bolus prep, formation and a/p propulsion was adequate. Occasionally mildly delayed swallow trigger was observed with thin liquids, to level of vallecula and x1 to posterior epiglottis. Pharyngeal Phase Source: MBSIMP (TM) (C) Bolus Specific Scoring Grid Delayed Initiation of Pharyngeal Swallow Yes: Occ w/ liquids to vallecula, posterior epiglottis Soft Palate Elevation No Impairment (WNL) Tongue Base Strength/Range of Motion WFL Residue Along the Tongue Base Yes Clearance of Residue Along Tongue Base WFL Laryngeal Elevation Mild Impairment Anterior Hyoid Movement WFL Epiglottic Range of Motion Mild Impairment Vallecular Residue Yes: Trace to Mild Clearance of Vallecular Residue Minimal Impairment Laryngeal Vestibular Closure Mild Impairment Pharyngeal Stripping Wave Mild Impairment Pharyngeal Contraction No Impairment (WNL) Posterior Pharyngeal Wall Residue No Upper Esophageal Sphincter Opening No Impairment (WNL) Residue in the Pyriform Sinuses No Esophageal Clearance Upright Position Minimal Impairment Pharyngoesophageal Backflow Observed No: Frequent residue below UES Additional Pharyngeal Phase Observations Incomplete closure of laryngeal vestibule and incomplete epiglottic inversion resulted in trace to mild penetration of thin liquids x3 trials. Trace aspiration was observed with initial tsp trial. No cough response with all episodes. Mild osteophytes were observed from C4-C7 without impeding flow of bolus. Swallowing of air was observed with most trials, resulting in frequent belching. Trace to mild residue below UES was noted consistently. The pt c/o intermittent sticking sensation at base of throat, which was typically relieved with belching, although this did not fully clear upper esophageal residue. A/P View Textures Administered Trials Presented Sturgis Liquid via Cup, Dysphagia Blenderized Textures ,Barium Tablet A/P View Observations Pharyngeal Contraction No Impairment (WNL) Esophageal Function Slowed Clearing Esophageal Clearance Upright Position Minimal Impairment Esophageal Observations Esophageal Function Trace to mild residue below UES. Delayed clearance of 13mm barium tablet observed, which cleared to stomach with subsequent swallow of water. Clinical Impressions Dysphagia Type Mild Pharyngeal Dysphagia Findings Incomplete closure of laryngeal vestibule and incomplete epiglottic inversion result in occasional penetration and one episode of trace aspiration of thin liquids in single and consecutive sips. All episodes of penetration and aspiration were silent in nature, indicating reduced laryngeal and tracheal sensation. Reduced VF adduction secondary to cycstic lesion may have contributed to aspiration. Frequently, air was mixed with contrast, resulting in frequent belching by the pt. Pharyngeal clearance of bolus is WFL with trace to mild residue at vallecula. Consistent esophageal residue was observed just below the UES, and slow clearance of barium tablet was noted, requiring 2 swallows of water to clear tablet to stomach. Given the pt's history of GERD , reduced esophageal motility may contribute to sticking sensations. The pt's complaints of frequent belching appear due to frequent intake of air with bolus. She appears to be at minimal to mild risk of aspiration and is recommended to continue dysphagia therapy targeting compensatory strategies to reduce intake of air and to strengthen swallow musculature to improve airway protection. Rehabilitation Potential Excellent Patient Appropriate for Therapy Yes Recommendations Diet Liquids Order Thin Diet Order Mechanical Soft Medication Recommendation As Tolerated Comments Diet modification recommended secondary to dentition Aspiration Precautions Recommended Precautions Upright at 90 Degrees,Small Bites/Sips Treatment Plan Therapy Recommendations Outpatient Speech Therapy, Vocal Fold Adduction Exercises ,GERD/Vocal Hygiene Education, Other Additional Therapy Recommendations Pharyngeal and laryngeal musculature strengthening exercises Recommended Referrals GI Consult,Dental Evaluation Additional Recommended Referrals Referrals to GI for untreated IBS and to dentist for dental repai Compensatory Strategies Recommendations Sitting Upright (90 deg),Small Bites and Sips Additional Compensatory Strategies Exhale through nose prior to Recommended swallow to reduce air consumption Short Term Goals 1. The pt will perform exercises to increase strength , coordination and ROM of swallow musculature to improve swallow function and increase safety. 2. The pt will perform compensatory swallow strategies to reduce swallowing of air and subsequent belching with oral intake. 3. The pt will participate in voice therapy to improve VF adduction to improve vocal quality and airway protection. Long-Term Goals 1. The pt will demonstrate independence in exercises and compensatory strategies to promote carryover of therapeutic tasks and long- term improvement of swallow safety. 2. The pt will tolerate least restrictive diet to meet her nutrition and hydration needs. Placement Recommendation After Discharge Home
== END ==
PROVIDERS: PCP Family Medicine; Visit Provider Family Medicine
DX: R13.12 Dysphagia, oropharyngeal phase (principal)
CPT/HCPCS: 74230; 92611

== ENCOUNTER 2019-04-22 09:30 | Outpatient (RCR) | payer OTHER, MEDICAID, SELFPAY ==
--- NOTE | 2019-03-19 16:30 | ST.OPIE ---
Visit Care Team Role Provider Type Debby Qureshi DO Attending Provider Physician Primary Care Provider Specialty: Family Practice Address: [address] [place] [address], [facility], [place], [address] Email: [email or web address] Speech-Language Pathology Initial Evaluation LEGAL WORD PROCESSOR Clinical Swallow Evaluation Start: 03/19/19 15:13 Freq: Status: Active Protocol: Document 03/19/19 15:14 MO (Rec: 03/19/19 16:28 MO [id number]) Clinical Swallow Evaluation Session Time Visit Start Time 10:30 Visit Stop Time 11:25 Total Visit Minutes 55 Visit Information Visit Number Initial Evaluation Plan of Care Dates 03/18/19 - 06/11/19 Insurance Information [facility] Referral Referring Physician Dr. Qureshi Reason for Referral Dysphagia - Pt referred from Swallow Screening Setting Assessment Location Outpatient Care Visit Type Note Type Initial Evaluation Next Note Type Next Note Type Treatment Note Patient Information Identification Type Name,ID Card History This 48-yr-old female with complex medical history was seen by this Clinician during community swallow screening and recommended MBS and dysphagia therapy, possibly voice therapy. The pt c/o frequent sticking sensation at lower throat area, particularly with sticky foods, requiring effortful swallow and belching post- swallow to clear boluses. She is unable to swallow foods such as taffy or Starburst candies, needing to pull them out of [her] throat if she attempts. She also reports frequent coughing with cold liquids and occasional indigestion. The pt is missing several upper and lower molars and does have one or more broken teeth, which impact her ability to chew. As a result, she avoids foods such as apples that require extensive or strong mastication. She informed of anxiety with dentists but an intention to find one who will work with me. In addition, the pt has a history of vocal nodules. She was being seen by Speech Pathology for voice therapy in Apr 1999 and underwent laryngoscopy in Jun 1999, which revealed vocal nodules. The pt did not return to voice therapy d/t dealing with the of her mother. Today she reports her voice still sounds the same as it did at that time. She expresses an interest in voice evaluation and treatment. Furthermore, the pt states that she gets dizzy when she talks for very long and is unable to sing. She reported having pneumonia in Jun 2015, for which she was hospitalized at [facility] ICU and diagnosed with 2 blood clots in her lungs. Medical records confirm hospitalization from Jul 19-2015, and diagnosis of pulmonary embolism. The pt feels that she now is unable to take deep breaths, and she is currently working with Physical Therapy on diaphragmatic breathing techniques to improve this. Primary diagnosis for PT is neck pain. MRI in Jan 2018 revealed multilevel degenerative disc disease and facet arthropathy; moderate to severe central canal stenosis at C5-C6 and C6-C7; and multilevel foraminal stenosis, severe at C5-C6 on the left and C6-C7 bilaterally, moderate at C5-C6 on the right. Additional PMHx is significant for Bipolar disorder for which she is followed by [facility] Psychiatry; ADHD; IBS; and Allergies. Her personal history includes recent divorce (July 2018) involving [facility]. She reports high levels of stress and anxiety and has taken up running as a means of relieving stress and coping with anxiety. Subjective Observations The pt arrived on time and provided case history supplemental to medical records. Evaluation Liquids Trialed Thin Solids Trialed Puree,Mechanical Soft,Regular Administration Type Cup Single Sip,Cup Consecutive Sips,Straw,Self-Feeding Oral Impairment Mildly Impaired Oral Strategies Upright at 90 degrees Oral Phase Comments Oral Peripheral Exam: Symmetrical structures. Mild labial weakness allowing escape of air with air-filled cheeks. Hyolaryngeal elevation and excursion moderately reduced via palpation. Pt has several upper and lower molars missing bilaterally and at least one broken molar. All other structures were WNL of strength, coordination and ROM. Oral Phase: Extended mastication secondary to poor dentition. Mildly effortful bolus prep and a/p propulsion with dry turkey sandwich. Good oral containment and clearance. Swallow trigger appears to be timely. Pharyngeal Impairment Moderately Impaired Pharyngeal Strategies Sitting Upright (90 deg),Chin Tuck,Double Swallow,Effortful Swallow,Small Bites and Sips, Alternate Liquids/Solids Pharyngeal Phase Comments The pt exhibited belching post- swallow with most trials including all swallows of thin liquid from cup. Only occasional belching with thin liquids from straw, indicating potential of intake of air when drinking from cup. Belching was also present after most trials of solids. The pt reported feeling the need to belch in order to sufficiently clear substances from pharynx and esophagus. She reported sticking sensation at base of throat and at mid chest level with trials of dry turkey sandwich. Clearance was aided with chin tuck + effortful swallow, liquid wash, and belching. The pt did exhibit coughing with one trial of turkey sandwich. The pt used a huffing type of cough, which she says typically helps clear her airway when coughing with intake. Findings Dysphagia Type Mild Oral and Moderate Pharyngeal Dysphagia Rehabilitation Potential Good Impressions The pt presents with mild oral dysphagia secondary to poor dentition, and moderate pharyngeal dysphagia likely secondary to reduced strength, coordination, and/or ROM of swallow musculature. Pharyngeal dysphagia is characterized by sticking sensation, reduced airway protection, and need for increased effort to swallow dry, sticky solids. The pt frequently belches following swallow, which may indicate excessive intake of air with swallow and/or esophageal dysfunction. Modified Barium Swallow Study with lateral and A/P viewing is recommended for more thorough evaluation and to guide POC. Recommend scan of esophagus be included with MBSS to determine whether referral to GI is warranted. The pt also presents with a mild-moderate dyphonia characterized by breathiness, strain, and occasional roughness of voice. Based on pt's history of vocal nodules and incompleted voice therapy, evaluation of voice is recommended, including videostroboscopy by ENT for VF evaluation. Diet Recommendations Liquids Order Thin Diet Order Mechanical Soft Medication Recommendations As Tolerated Aspiration Precautions Recommended Precautions Upright at 90 Degrees, Alternate Liquids/Solids,Small Bites/Sips,Chin Tuck, Effortful Swallow,Double Swallow Treatment Plan Placement Recommendations after Home Discharge Appropriate for Therapy Yes Therapy Recommendations Modified Barium Swallow Study for further evaluation of swallow and to guide POC. Dysphagia therapy to increase strength, coordination, and ROM of swallow musculature. Videostroboscopy by ENT to evaluate VF function/pathology. If warranted and pt is able to tolerate, voice evaluation and therapy is recommended. Dysphagia Goals 1. The pt will participate in MBSS for further evaluation of swallow function/safety and to guide POC. 2. The pt will perform exercises to increase strength, coordination, and ROM of swallow musculature and improve swallow function and comfort. Additional goals to be determined following MBSS. LEGAL WORD PROCESSOR Follow Up 1x/wk for 6 wks. May increase pending MBSS & ENT findings. Referrals/Other Recommended Referrals ENT Consult,Dental Evaluation
--- NOTE | 2019-03-26 12:10 | ST.OPTN ---
Visit Care Team Role Provider Type Debby Qureshi DO Attending Provider Physician Primary Care Provider Address: [address] [place] [address], [address], [place], [address] VIDEO COORDINATOR Treatment Note VIDEO COORDINATOR Treatment Note Start: 03/19/19 15:13 Freq: Status: Active Protocol: Document 03/26/19 11:58 MO (Rec: 03/26/19 12:10 MO [id number]) Speech Pathology Treatment Note Session Time Visit Start Time 09:30 Visit Stop Time 10:20 Total Visit Minutes 50 Visit Information Visit Number 1 Setting Treatment Setting Outpatient Care Visit Type Note Type Treatment Note Next Note Type Next Note Type Treatment Note Subjective Observations/Patient Presentation Pt arrived on time. No new complaints. Reported being able to breathe more deeply particularly when running as a result of training in last session. Chief Complaint(s) Swallowing,Voice Rehab Expectation/Goals: Patient Goals Reduce effort, discomfort with swallow. Improve vocal quality. Patient Knowledge/Awareness of VIDEO COORDINATOR Role Good in Treatment Objective Treatment Activities Education provided RE diaphragmatic breathing, VF A& P, normal and impaired swallow function. Continued training in diaphragmatic breathing. Pt exhibited mixed diaphragmatic and clavicular respiration during deep breathing. Instructed pt in reducing involvement of shoulders and tension at neck and shoulders. Pt able to nearly eliminate clavicular breathing via visual and tactile biofeedback (i.e., mirror and hands on belly and chest). Initiated training of swallow exercises including Shaker, Sonya and Wilda. Instructions were provided orally with demonstration and in writing. Pt returned demonstration and verbalized understanding. Referral made by this VIDEO COORDINATOR via fax to [facility] for videostroboscopy. Assessment Patient Response to Treatment Excellent Rehab Potential Good Impairments Identified Dysphagia,Vocal Quality Progress Towards Goals Good Progress Assessment of Overall Progress Improving Assessment of Improvement The pt is improving ability to breath diaphragmatically, which is foundational to improving vocal quality and coordinating breath and swallow. She was able to perform swallow exercises as instructed. She verbalized understanding of education provided, and demonstrated via excellent questions and restatements of information. Discussed videostroboscopy recommendation. The pt conitinues to be in agreement with referral, which was made to [facility]. Recommendation for MBS also still stands and awaiting MD orders. Reviewed with Patient Goals,Progress Being Made,Home Exercise Program Patient/Caregiver Understanding Excellent Plan Therapeutic Contents Client Education,Home Exercise Program,Swallowing/Feeding, Voice Training Provided Patient/Caregiver Instruction Home Exercise Program,Plan of Care,Questions/Concerns Therapy Recommendations Continue with Current Program Suggested Referral ENT Other Referrals [facility]
--- NOTE | 2019-04-02 12:19 | ST.OPTN ---
Visit Care Team Role Provider Type Debby Qureshi DO Attending Provider Physician Primary Care Provider Address: [address] [place] [address], [address], [place], [address] PATROL POLICE SERGEANT Treatment Note PATROL POLICE SERGEANT Treatment Note Start: 03/19/19 15:13 Freq: Status: Active Protocol: Document 04/02/19 10:20 MO (Rec: 04/02/19 10:32 MO [id number]) Speech Pathology Treatment Note Session Time Visit Start Time 09:45 Visit Stop Time 10:20 Total Visit Minutes 35 Visit Information Visit Number 2 Plan of Care Dates 03/18/19 - 06/11/19 Insurance Information [facility] Setting Treatment Setting Outpatient Care Visit Type Note Type Treatment Note Next Note Type Next Note Type Treatment Note General Information General Information This 48-yr-old female with complex medical history was seen by this Clinician during community swallow screening and recommended MBS and dysphagia therapy, possibly voice therapy. The pt c/o frequent sticking sensation at lower throat area, particularly with sticky foods, requiring effortful swallow and belching post- swallow to clear boluses. She is unable to swallow foods such as taffy or Starburst candies, needing to pull them out of [her] throat if she attempts. She also reports frequent coughing with cold liquids and occasional indigestion. The pt is missing several upper and lower molars and does have one or more broken teeth, which impact her ability to chew. As a result, she avoids foods such as apples that require extensive or strong mastication. She informed of anxiety with dentists but an intention to find one who will work with me. In addition, the pt has a history of vocal nodules. She was being seen by Speech Pathology for voice therapy in Apr 1999 and underwent laryngoscopy in Jun 1999, which revealed vocal nodules. The pt did not return to voice therapy d/t dealing with the of her mother. Today she reports her voice still sounds the same as it did at that time. She expresses an interest in voice evaluation and treatment. Furthermore, the pt states that she gets dizzy when she talks for very long and is unable to sing. She reported having pneumonia in Jun 2015, for which she was hospitalized at [facility] and diagnosed with 2 blood clots in her lungs. Medical records confirm hospitalization from Jul 19-2015, and diagnosis of pulmonary embolism. The pt feels that she now is unable to take deep breaths, and she is currently working with Physical Therapy on diaphragmatic breathing techniques to improve this. Primary diagnosis for PT is neck pain. MRI in Jan 2018 revealed multilevel degenerative disc disease and facet arthropathy; moderate to severe central canal stenosis at C5-C6 and C6-C7; and multilevel foraminal stenosis, severe at C5-C6 on the left and C6-C7 bilaterally, moderate at C5-C6 on the right . Additional PMHx is significant for Bipolar disorder for which she is followed by [facility]; ADHD; IBS; and Allergies. Her personal history includes recent divorce (July 2018) involving a stay at a women's intermediate. She reports high levels of stress and anxiety and has taken up running as a means of relieving stress and coping with anxiety. Subjective Observations/Patient Presentation Pt arrived 15 min late d/t busy morning schedule. Attempted to call but was unable to as she was driving. No new complaints. Reported using diaphragmatic breath but continues to feel intermittently dizzy and finds holding her breath momentarily to be helpful in resetting my system. Pt has appt with [facility] set for 04/12/19. She thought MBS had been scheduled as well; however, there is no record of this in [facility] schedule. PATROL POLICE SERGEANT will fax request again to PCP. Pt also informed she will be out of town for 2 weeks at end of Mar and into Apr. Hope to initiate voice therapy prior to this time, pending ENT findings and recommendations. Chief Complaint(s) Swallowing,Voice Rehab Expectation/Goals: Patient Goals Reduce effort, discomfort with swallow. Improve vocal quality. Patient Knowledge/Awareness of PATROL POLICE SERGEANT Role Good in Treatment Objective Short Term Goals 1. The pt will participate in MBSS for further evaluation of swallow function/safety and to guide POC. 2. The pt will perform exercises to increase strength , coordination, and ROM of swallow musculature and improve swallow function and comfort. Additional goals to be determined following MBSS. Prison Goals 1. The pt will exhibit swallow function/safety WNL and tolerate diet texture of choice, thin liquids without overt s/sx of aspiration. 2. The pt will produce vocal quality WNL. Treatment Activities Continued training in diaphragmatic breathing. Pt is improving and able to perform with reduced need for biofeedback. Demonstrated back breathing by allowing and noticing how entire rib cage opens with deep inhalation. Pt returned demonstration and verbalized understanding. Encouraged pt to allow herself to feel open and not restricted when breathing vs feeling restricted or obligated to breath in a particular way. This way of thinking is intended to assist in reducing stress and anxiety and increasing relaxation which will assist easy breathing. Continued training in swallow exercises. Pt performed Sonya and back of tongue exercises. Shaker not performed d/t time constraints, but the pt talked through the exercise as she had completed it at home, which was consistent with instructions. Assessment Patient Response to Treatment Good Rehab Potential Good Impairments Identified Dysphagia,Vocal Quality Progress Towards Goals Good Progress Assessment of Overall Progress Improving Assessment of Improvement The pt is improving ability to breath diaphragmatically, which is foundational to improving vocal quality and coordinating breath and swallow. She was able to perform swallow exercises as instructed. She verbalized understanding of education provided, and demonstrated via excellent questions and restatements of information. Reviewed with Patient Goals,Progress Being Made,Home Exercise Program Patient/Caregiver Understanding Excellent Plan Therapeutic Contents Client Education,Home Exercise Program,Swallowing/Feeding, Voice Training Provided Patient/Caregiver Instruction Home Exercise Program,Plan of Care,Questions/Concerns Therapy Recommendations Continue with Current Program Suggested Referral ENT Other Referrals [facility]
--- NOTE | 2019-04-23 09:03 | ST.OPTN ---
Visit Care Team Role Provider Type Debby Qureshi DO Attending Provider Physician Primary Care Provider Address: [address] [place] [address], [address], [place], [address] FAMILY PRACTICE PHYSICIAN ASSISTANT Treatment Note FAMILY PRACTICE PHYSICIAN ASSISTANT Treatment Note Start: 03/19/19 15:13 Freq: Status: Active Protocol: Document 04/16/19 08:52 MO (Rec: 04/23/19 08:59 MO [id number]) Speech Pathology Treatment Note Session Time Visit Start Time 12:00 Visit Stop Time 12:45 Total Visit Minutes 45 Visit Information Visit Number 3 Plan of Care Dates 03/18/19 - 06/11/19 Insurance Information [facility] Setting Treatment Setting Outpatient Care Visit Type Note Type Treatment Note Next Note Type Next Note Type Treatment Note General Information General Information This 48-yr-old female with complex medical history was seen by this Clinician during community swallow screening and recommended MBS and dysphagia therapy, possibly voice therapy. The pt c/o frequent sticking sensation at lower throat area, particularly with sticky foods, requiring effortful swallow and belching post- swallow to clear boluses. She is unable to swallow foods such as taffy or Starburst candies, needing to pull them out of [her] throat if she attempts. She also reports frequent coughing with cold liquids and occasional indigestion. The pt is missing several upper and lower molars and does have one or more broken teeth, which impact her ability to chew. As a result, she avoids foods such as apples that require extensive or strong mastication. She informed of anxiety with dentists but an intention to find one who will work with me. In addition, the pt has a history of vocal nodules. She was being seen by Speech Pathology for voice therapy in Apr 1999 and underwent laryngoscopy in Jun 1999, which revealed vocal nodules. The pt did not return to voice therapy d/t dealing with the of her mother. Today she reports her voice still sounds the same as it did at that time. She expresses an interest in voice evaluation and treatment. Furthermore, the pt states that she gets dizzy when she talks for very long and is unable to sing. She reported having pneumonia in Jun 2015, for which she was hospitalized at [facility] and diagnosed with 2 blood clots in her lungs. Medical records confirm hospitalization from Jul 19-2015, and diagnosis of pulmonary embolism. The pt feels that she now is unable to take deep breaths, and she is currently working with Physical Therapy on diaphragmatic breathing techniques to improve this. Primary diagnosis for PT is neck pain. MRI in Jan 2018 revealed multilevel degenerative disc disease and facet arthropathy; moderate to severe central canal stenosis at C5-C6 and C6-C7; and multilevel foraminal stenosis, severe at C5-C6 on the left and C6-C7 bilaterally, moderate at C5-C6 on the right . Additional PMHx is significant for Bipolar disorder for which she is followed by [facility]; ADHD; IBS; and Allergies. Her personal history includes recent divorce (July 2018) involving a [facility]. She reports high levels of stress and anxiety and has taken up running as a means of relieving stress and coping with anxiety. Subjective Observations/Patient Presentation Pt seen for therapy immediately following MBS. Since last seen, the pt also was examined by ENT via videostroboscopy, which revealed a small cystic lesion on the left VF. Chief Complaint(s) Swallowing,Voice Rehab Expectation/Goals: Patient Goals Reduce effort, discomfort with swallow. Improve vocal quality. Patient Knowledge/Awareness of FAMILY PRACTICE PHYSICIAN ASSISTANT Role Good in Treatment Objective Short Term Goals 1. The pt will participate in MBSS for further evaluation of swallow function/safety and to guide POC. 2. The pt will perform exercises to increase strength , coordination, and ROM of swallow musculature and improve swallow function and comfort. Additional goals to be determined following MBSS. Alf Goals 1. The pt will exhibit swallow function/safety WNL and tolerate diet texture of choice, thin liquids without overt s/sx of aspiration. 2. The pt will produce vocal quality WNL. Treatment Activities Dysphagia: Education provided to pt RE MBS results, including review of MBS video. In most trials, air was swallowed with the contrast, resulting in frequent belching . Occasional penetration and one event of trace aspiration was observed. Educated pt on compensatory strategies to reduce air intake, as well as current exercises included in her POC that target airway closure. The pt verbalized understanding and all her questions were answered. Voice: Education provided to pt RE ENT videostroboscopy results, and vocal hygiene and treatment plan to reduce strain on VFs to heal cystic lesion. Initiated training in forward focus resonance. Pt verbalized understanding and her questions were answered. Assessment Patient Response to Treatment Good Rehab Potential Good Impairments Identified Dysphagia,Vocal Quality Progress Towards Goals Good Progress Assessment of Overall Progress Improving Assessment of Improvement Pt demonstrated understanding of results of both MBS and videostroboscopy. She continues to perform diaphragmatic breathing appropriately with moderate effort and frequent complaints of light-headedness. She appropriately takes breaks as needed to reduce this. She was responsive to initial education of forward focus resonance and reports taking steps to increase vocal rest. Reviewed with Patient Goals,Progress Being Made,Home Exercise Program Patient/Caregiver Understanding Excellent Plan Therapeutic Contents Client Education,Home Exercise Program,Swallowing/Feeding, Voice Training Provided Patient/Caregiver Instruction Home Exercise Program,Plan of Care,Questions/Concerns Therapy Recommendations Continue with Current Program Other Referrals MBSS
--- NOTE | 2019-07-30 08:59 | ST.OPDS ---
Visit Care Team Role Provider Type Debby Qureshi DO Attending Provider Physician Primary Care Provider Address: [address] [place] [address], [address], [place], [address] CLINICAL MEDICAL ASSISTANT Treatment Note CLINICAL MEDICAL ASSISTANT Treatment Note Start: 03/19/19 15:13 Freq: Status: Active Protocol: Document 07/30/19 08:58 MO (Rec: 07/30/19 08:59 MO [id number]) Speech Pathology Treatment Note Visit Information Insurance Information [facility] Setting Treatment Setting Outpatient Care Visit Type Note Type Discharge Summary General Information General Information This now 49-yr-old female with complex medical history was seen by this Clinician during community swallow screening and recommended MBS and dysphagia therapy, possibly voice therapy. The pt c/o frequent sticking sensation at lower throat area, particularly with sticky foods, requiring effortful swallow and belching post- swallow to clear boluses. She is unable to swallow foods such as taffy or Starburst candies, needing to pull them out of [her] throat if she attempts. She also reports frequent coughing with cold liquids and occasional indigestion. The pt is missing several upper and lower molars and does have one or more broken teeth, which impact her ability to chew. As a result, she avoids foods such as apples that require extensive or strong mastication. She informed of anxiety with dentists but an intention to find one who will work with me. In addition, the pt has a history of vocal nodules. She was being seen by Speech Pathology for voice therapy in Apr 1999 and underwent laryngoscopy in Jun 1999, which revealed vocal nodules. The pt did not return to voice therapy d/t dealing with the of her mother. Today she reports her voice still sounds the same as it did at that time. She expresses an interest in voice evaluation and treatment. Furthermore, the pt states that she gets dizzy when she talks for very long and is unable to sing. She reported having pneumonia in Jun 2015, for which she was hospitalized at [facility] ICU and diagnosed with 2 blood clots in her lungs. Medical records confirm hospitalization from Jul 19-2015, and diagnosis of pulmonary embolism. The pt feels that she now is unable to take deep breaths, and she is currently working with Physical Therapy on diaphragmatic breathing techniques to improve this. Primary diagnosis for PT is neck pain. MRI in Jan 2018 revealed multilevel degenerative disc disease and facet arthropathy; moderate to severe central canal stenosis at C5-C6 and C6-C7; and multilevel foraminal stenosis, severe at C5-C6 on the left and C6-C7 bilaterally, moderate at C5-C6 on the right . Additional PMHx is significant for Bipolar disorder for which she is followed by [facility] Psychiatry; ADHD; IBS; and Allergies. Her personal history includes recent divorce (July 2018) involving a stay at a women's assisted. She reports high levels of stress and anxiety and has taken up running as a means of relieving stress and coping with anxiety. Subjective Observations/Patient Presentation The pt was last seen 05/22/19. She has not returned for further treatment and is discharged from skilled services. Objective Short Term Goals 1. The pt will perform exercises to increase strength , coordination, and ROM of swallow musculature and improve swallow function and comfort. Additional goals to be determined following MBSS. Prison Goals 1. The pt will exhibit swallow function/safety WNL and tolerate diet texture of choice, thin liquids without overt s/sx of aspiration. 2. The pt will produce vocal quality WNL. Plan Therapy Recommendations Discharge from Speech Therapy
== END 2019-07-30 13:11 ==
LOC: SP 09:30
PROVIDERS: PCP Family Medicine; Visit Provider Family Medicine
DX: R13.10 Dysphagia, unspecified (principal)
CPT/HCPCS: 92507; 92526; 92610

== ENCOUNTER → 2019-07-01 14:51 | Outpatient (CLI) | payer OTHER, MEDICAID, SELFPAY ==
--- NOTE | 2019-07-01 14:52 | DI.RAD.S_ITS ---
PROCEDURE: XR FOOT RT MIN 3V INDICATIONS: right foot pain over 2-4 MTP joints TECHNIQUE: 3 views of the foot were acquired. COMPARISON: [facility], CR, XR FOOT RT MIN 3V, 12/29/2017, 16:05. FINDINGS: Bones: No fractures or dislocations. No suspicious bony lesions. Soft tissues: No tibiotalar joint effusion. Achilles tendon appears normal. IMPRESSION: No acute radiographic findings. If there is continued pain, followup exam or additional imaging such as MRI or CT could be performed for further assessment. Dictated by: Julianne Arroyo M.D. on 07/01/2019 at 16:03 Approved by: Jluianne Arroyo M.D. on 07/01/2019 at 16:04
== END ==
PROVIDERS: PCP Family Medicine; Referring Provider Family Medicine; Visit Provider Family Medicine
DX: M79.671 Pain in right foot (principal)
CPT/HCPCS: 73630

== ENCOUNTER → 2019-12-12 11:09 | Outpatient (CLI) | payer OTHER, MEDICAID, SELFPAY ==
[2019-12-12 12:19] LABS: Add Manual Diff / Slide Review NO; Basophils Absolute Auto 0 /uL (0-100); Basophils Percent Auto 0.3 % (0-2); Eosinophils Absolute Auto 100 /uL (0-450); Hematocrit 38.8 % (36-46); Hemoglobin 13.3 g/dL (12.0-16.0); Lymphocytes Absolute Auto 1800 /uL (1100-4500); Lymphocytes Percent Auto 36.4 % (25-40); Mean Corpuscular HGB Conc 34.4 % (30-36); Mean Corpuscular Hemoglobin 33.2 PG (26-34); Mean Corpuscular Volume 96.6 fL (80-100); Monocytes Absolute Auto 500 /uL (0-900); Monocytes Percent Auto 10.8 % (3-14); Neutrophils Absolute Auto 2500 /uL (1500-7000); Neutrophils Percent Auto 50.5 % (50-75); Platelet Count 343 X10^3/uL (150-400); Red Blood Cell Count 4.01 X10^6/uL (4.0-5.2); Red Cell Distribution Width 13.2 % (11.6-14.8)
[2019-12-12 12:34] LABS: Alanine Aminotransferase 17 IU/L (<35); Albumin 4.7 g/dL (3.5-5.0); Albumin Globulin Ratio 1.6 (1.0-2.8); Alkaline Phosphatase 61 U/L (38-126); Aspartate Aminotransferase 27 IU/L (14-36); BUN Creatinine Ratio 13.4 (6-22); Bilirubin Total 0.5 mg/dL (0.2-1.3); Blood Urea Nitrogen 11 mg/dL (7-17); Calcium 10.1 mg/dL (8.4-10.2); Carbon Dioxide 29 mmol/L (22-32); Chloride 102 mmol/L (98-107); Estimated Glomerular Filt Rate > 60.0 mL/min (>60); Globulin 2.9 g/dL (1.7-4.1); Glucose 104 mg/dL (70-100); HEMOLYSIS < 15 (0-50); Sodium 138 mmol/L (137-145); Total Protein 7.6 g/dL (6.3-8.2)
[2019-12-12 13:22] LABS: TSH w/ Reflex to FT4 2.81 uIU/mL (0.47-4.68)
[2019-12-14 18:08] LABS: Tissue Transglutaminase IgA <2 U/mL (0-3); Tissue Transglutaminase IgG <2 U/mL (0-5)
== END ==
PROVIDERS: PCP Family Medicine; Referring Provider Family Medicine; Visit Provider Family Medicine
DX: K52.9 Noninfective gastroenteritis and colitis, unspecified (principal)
CPT/HCPCS: 36415; 80053; 83516; 84443; 85025

== ENCOUNTER → 2020-05-07 08:54 | Outpatient (CLI) | payer OTHER, MEDICAID, SELFPAY ==
--- NOTE | 2020-05-07 08:55 | DI.RAD.S_ITS ---
PROCEDURE: XR FOOT RT MIN 3V INDICATIONS: r foot pain TECHNIQUE: 3 views of the foot were acquired. COMPARISON: [facility], , XR FOOT RT MIN 3V, 07/01/2019, 14:47. FINDINGS: Bones: No fractures or dislocations. No suspicious bony lesions. Soft tissues: No tibiotalar joint effusion. Achilles tendon appears normal. IMPRESSION: No evidence acute bony abnormality of the right foot. Dictated by: Santino Sherwood M.D. on 05/07/2020 at 9:43 Approved by: Santino Sherwood M.D. on 05/07/2020 at 9:44
== END ==
PROVIDERS: PCP Family Medicine; Referring Provider Physician Assistant; Visit Provider Physician Assistant
DX: M79.671 Pain in right foot (principal)
CPT/HCPCS: 73630

== ENCOUNTER 2021-01-11 15:52 | Emergency (ER) | payer OTHER, MEDICAID, SELFPAY ==
[2021-01-11 16:01] VITALS: BP 142/89; PULSE 74; RESP 17; TEMP 36.7; O2SAT 100; BMI 22.8
[2021-01-11 17:16] LABS: Add Manual Diff / Slide Review NO; Basophils Absolute Auto 0 /uL (0-100); Basophils Percent Auto 0.5 % (0-2); Eosinophils Absolute Auto 0 /uL (0-450); Eosinophils Percent Auto 0.2 % (2-4); Hematocrit 39.8 % (36-46); Hemoglobin 13.7 g/dL (12.0-16.0); Lymphocytes Absolute Auto 1300 /uL (1100-4500); Lymphocytes Percent Auto 14.9 % (25-40); Mean Corpuscular HGB Conc 34.3 % (30-36); Mean Corpuscular Hemoglobin 33.8 PG (26-34); Mean Corpuscular Volume 98.4 fL (80-100); Monocytes Absolute Auto 500 /uL (0-900); Monocytes Percent Auto 5.5 % (3-14); Neutrophils Absolute Auto 7100 /uL (1500-7000); Neutrophils Percent Auto 78.9 % (50-75); Platelet Count 288 X10^3/uL (150-400); Red Blood Cell Count 4.05 X10^6/uL (4.0-5.2); Red Cell Distribution Width 12.9 % (11.6-14.8)
[2021-01-11 17:19] LABS: Alanine Aminotransferase 14 IU/L (<35); Albumin 4.3 g/dL (3.5-5.0); Albumin Globulin Ratio 1.5 (1.0-2.8); Alkaline Phosphatase 60 U/L (38-126); Aspartate Aminotransferase 24 IU/L (14-36); BUN Creatinine Ratio 20.6 (6-22); Bilirubin Total 0.5 mg/dL (0.2-1.3); Blood Urea Nitrogen 13 mg/dL (7-17); Calcium 9.7 mg/dL (8.4-10.2); Carbon Dioxide 24 mmol/L (22-32); Chloride 109 mmol/L (98-107); Estimated Glomerular Filt Rate > 60.0 mL/min (>60); Globulin 2.8 g/dL (1.7-4.1); Glucose 97 mg/dL (70-100); HEMOLYSIS < 15 (0-50); Lipase 62 U/L (23-300); Potassium 4.3 mmol/L (3.4-5.1); Sodium 138 mmol/L (137-145); Total Protein 7.1 g/dL (6.3-8.2)
--- NOTE | 2021-01-11 17:19 | ED.GENADULT ---
HPI - General Adult General Chief complaint: Abdominal Pain Stated complaint: STOMACH ISSUES Time Seen by Provider: 01/11/21 17:09 Source: patient Mode of arrival: Ambulatory History of Present Illness HPI narrative: Patient is a 50-year-old female. History of IBS. Does see a GI provider. States she did have a colonoscopy however per her report the prep was not adequate enough and so there was discussion about repeating it however this was 7 months ago. She arrives emergency department today with generalized abdominal discomfort. States she is having constipation and diarrhea. She is not on any medications for her IBS. She stated that her symptoms started this morning initially with constipation and then went into diarrhea. She states she is passing some blood and mucus. She has had 2 episodes of very severe abdominal cramping. Some nausea. No vomiting. No fevers. Has not tried anything for symptoms prior to arrival. Related Data Home Medications Medication Instructions Recorded Confirmed cannabinoid PO DAILY 03/26/19 12/15/20 magnesium 250 mg tablet 250 mg PO DAILY PRN 06/05/19 12/15/20 Previous Rx's Medication Instructions Recorded estradiol 10 mcg vaginal tablet 10 mcg VAG 3XW #60 tab 06/10/19 (Vagifem) fluticasone propionate 50 See Rx Instructions .ROUTE 11/18/19 mcg/actuation nasal .COMPLEX #16 milliliter spray,suspension acyclovir 400 mg tablet 400 mg PO TID #20 tab MDD Herpes 07/14/20 genitalis clonidine HCl 0.1 mg tablet 0.1 mg PO TID PRN #90 tab 07/30/20 lamotrigine 200 mg tablet 200 mg PO DAILY #90 tab 09/29/20 cariprazine 1.5 mg capsule 1.5 mg PO DAILY #7 cap 11/16/20 cariprazine 3 mg capsule 3 mg PO DAILY #21 cap 11/16/20 lurasidone 20 mg tablet (Latuda) 20 mg PO BEDTIME #30 tab 12/04/20 oxybutynin chloride 10 mg See Rx Instructions .ROUTE 12/18/20 tablet,extended release 24 hr .COMPLEX #90 tab dextroamphetamine-amphetamine ER 60 mg PO QAM #60 cap 12/30/20 30 mg 24hr capsule,extend release (Adderall XR) lithium carbonate 300 mg capsule 300 mg PO HS #180 cap 12/30/20 dicyclomine 20 mg tablet 20 mg PO QID PRN #30 tab 01/11/21 Allergies Allergy/AdvReac Type Severity Reaction Status Date / Time Penicillins [PENICILLINS] Allergy Severe ANAPHYLAXIS Verified 12/15/20 20:20 lactose AdvReac Intermediate upset Verified 12/15/20 20:20 stomach Review of Systems Constitutional Constitutional: Reports system reviewed and no additional complaints, except as documented Cardiovascular Cardiovascular: Reports system reviewed and no additional complaints, except as documented Respiratory Respiratory: Reports system reviewed and no additional complaints, except as documented Gastrointestinal Gastrointestinal: Reports as per HPI Genitourinary Genitourinary: Reports system reviewed and no additional complaints, except as documented Integumentary/Breasts Skin/Breast: Reports system reviewed and no additional complaints, except as documented Hematologic/Lymphatic On Anticoagulants: No Patient History Medical History Attention deficit hyperactivity disorder (ADHD), predominantly hyperactive impulsive type, moderate Dog bite of right hand Hyperlipidemia Major depressive disorder, recurrent severe without psychotic features Pneumonia (~06/2015) Suicide attempt by substance overdose Urinary incontinence, mixed Surgical History Anesthesia History of tonsillectomy Status post delivery (~1990) Status post delivery (~1994) Status post hysterectomy with oophorectomy (08/08/16) Status post tubal ligation (~1994) Family History Mother COPD (chronic obstructive pulmonary disease) Social History marital status: Smoking Status: Never smoker Smoking Status: Never smoker alcohol intake frequency: a few times a week Substance Use Type: marijuana Exam Initial Vital Signs Initial Vital Signs: Vital Signs Temperature 98.1 F 01/11/21 16:01 Pulse Rate 74 01/11/21 16:01 Respiratory Rate 17 01/11/21 16:01 Blood Pressure 142/89 H 01/11/21 16:01 Pulse Oximetry 100 01/11/21 16:01 Const General: cooperative, well developed and well groomed HENMT Head: normal to inspection and normocephalic Resp Effort & Inspection: normal respiratory effort Auscultation: clear to auscultation bilaterally Cardio Rate: regular rate Rhythm: regular rhythm GI Inspection: normal to inspection Palpation: soft, No firm, No guarding and tender (Diffusely tender) Skin General: no rashes or lesions noted Neuro General: patient alert, patient awake, patient oriented x3 and moves all extremities Extrem General: normal to inspection and capillary refill normal Psych Appearance: grossly normal and well kempt Course Orders Ordered: Discontinued Medications Al Hydrox/Mg Hydrox/Simethicone 20 ml/ Lidocaine HCl 15 ml 0 ml PO NOW ONE Stop: 01/11/21 17:57 Last Admin: 01/11/21 18:16 Dose: 35 ml Documented by: KAREN Dicyclomine HCl (Dicyclomine 10 Mg Capsule) 20 mg PO NOW ONE Stop: 01/11/21 18:15 Last Admin: 01/11/21 18:18 Dose: 20 mg Documented by: KAREN Vital Signs Vital signs: Vital Signs - 8 hr 01/11/21 16:01 Temperature 98.1 F Pulse Rate 74 Respiratory Rate 17 Blood Pressure 142/89 H Pulse Oximetry 100 Medical Decision Making Lab Data Lab results reviewed: Yes I reviewed the patient's lab results. Result diagrams: 01/11/21 16:49 01/11/21 16:49 Labs: Lab Results 01/11/21 01/11/21 Range/Units 16:49 16:49 WBC 9.0 (4.5-11.0) X10^3/uL RBC 4.05 (4.0-5.2) X10^6/uL Hgb 13.7 (12.0-16.0) g/dL Hct 39.8 (36-46) % MCV 98.4 (80-100) fL MCH 33.8 (26-34) PG MCHC 34.3 (30-36) % RDW 12.9 (11.6-14.8) % Plt Count 288 (150-400) X10^3/uL Neut % (Auto) 78.9 H (50-75) % Lymph % (Auto) 14.9 L (25-40) % [place] % (Auto) 5.5 (3-14) % Eos % (Auto) 0.2 L (2-4) % Baso % (Auto) 0.5 (0-2) % Neut # (Auto) 7100 H (1658-2243) /uL Lymph # (Auto) 1300 (0501-4330) /uL [place] # (Auto) 500 (0-900) /uL Eos # (Auto) 0 (0-450) /uL Baso # (Auto) 0 (0-100) /uL Sodium 138 (137-145) mmol/L Potassium 4.3 (3.4-5.1) mmol/L Chloride 109 H (98-107) mmol/L Carbon Dioxide 24 (22-32) mmol/L BUN 13 (7-17) mg/dL Creatinine 0.63 (0.52-1.04) mg/dL Estimated GFR > 60.0 (>60) mL/min BUN/Creatinine Ratio 20.6 (6-22) Glucose 97 (70-100) mg/dL Calcium 9.7 (8.4-10.2) mg/dL Total Bilirubin 0.5 (0.2-1.3) mg/dL AST 24 (14-36) IU/L ALT 14 (<35) IU/L Alkaline Phosphatase 60 (38-126) U/L Total Protein 7.1 (6.3-8.2) g/dL Albumin 4.3 (3.5-5.0) g/dL Globulin 2.8 (1.7-4.1) g/dL Albumin/Globulin Ratio 1.5 (1.0-2.8) Lipase 62 (23-300) U/L MDM Narrative Medical decision making narrative: Patient does have diffuse abdominal tenderness but overall has a very benign exam. Her labs are unremarkable. Has not vomited since being here in the emergency department. Has not had a bowel movement since being here in the emergency department. Does have a history of IBS. I feel given her presentation today and labs that further workup is not indicated. She is not having any urinary symptoms. Will send home on Bentyl to try to help with the discomfort that she is having. She was given return precautions and follow-up instructions. She was somewhat upset that further workup was not performed however I tried to reassure that based on her presentation today that this is a needed and that she should return if her symptoms worsen. Discharge Plan Departure Patient Disposition: Home Clinical Impression: Abdominal pain, Irritable bowel Instructions: DI for Abdominal Pain-Adult, DI for Irritable Bowel Syndrome Activity Restrictions/Additional Instructions: Continue to take all of your medications as directed. Contact your primary doctor for a follow-up. Return to the emergency department for any new or worsening symptoms Prescriptions: New dicyclomine 20 mg tablet 20 mg PO QID PRN (Reason: abdominal pain) Qty: 30 RF: 0 No Action cannabinoid PO DAILY RF: 0 magnesium 250 mg tablet 250 mg PO DAILY PRN (Reason: muscle pain) RF: 0 fluticasone propionate 50 mcg/actuation spray,suspension See Rx Instructions .ROUTE .COMPLEX Qty: 16 RF: 7 acyclovir 400 mg tablet 400 mg PO TID MDD Herpes genitalis Qty: 20 RF: 3 clonidine HCl 0.1 mg tablet 0.1 mg PO TID PRN (Reason: anxiety) Qty: 90 RF: 0 lamotrigine 200 mg tablet 200 mg PO DAILY Qty: 90 RF: 1 cariprazine 1.5 mg capsule 1.5 mg PO DAILY Qty: 7 RF: 0 cariprazine 3 mg capsule 3 mg PO DAILY Qty: 21 RF: 0 Latuda 20 mg tablet 20 mg PO BEDTIME Qty: 30 RF: 0 oxybutynin chloride 10 mg tablet extended release 24hr See Rx Instructions .ROUTE .COMPLEX Qty: 90 RF: 1 lithium carbonate 300 mg capsule 300 mg PO HS Qty: 180 RF: 1 dextroamphetamine-amphetamine [Adderall XR] 30 mg capsule,extended release 24hr 60 mg PO QAM Qty: 60 RF: 0 estradiol [Vagifem] 10 mcg tablet 10 mcg VAG 3XW Qty: 60 RF: 4 Referrals: Debby Qureshi DO [Primary Care Provider] -
--- NOTE | 2021-01-11 18:12 | PC.NURSE ---
Pt states this is fucking irritating-- you people didn't do anything Asked that she not swear at me and that she replace her mask. Requesting to speak with provider who will go in and see pt at my request.
[2021-01-11] MEDS: MAG HYDROX/ALUMINUM/SIMETH SUS 20 ML, LIDOCAINE VISCOUS 2% 15 ML PO (18:16)
[2021-01-11] MEDS: DICYCLOMINE 10 MG CAPSULE 20 MG PO (18:18)
== END 2021-01-11 18:27 | disposition home or self-care (01) ==
PROVIDERS: Emergency Provider Emergency Medicine; PCP Family Medicine
DX: R10.84 Generalized abdominal pain (principal); K58.9 Irritable bowel syndrome, unspecified
CPT/HCPCS: 36415; 80053; 83690; 85025; 99283

== ENCOUNTER → 2021-08-11 13:50 | Outpatient (CLI) | payer OTHER, MEDICAID, SELFPAY ==
[2021-08-11 14:48] LABS: COVID19 -Nasal RAPID Negative (Negative)
== END ==
PROVIDERS: PCP Family Medicine; Referring Provider Internal Medicine; Visit Provider Internal Medicine
DX: Z20.822 Contact with and (suspected) exposure to COVID-19 (principal)
CPT/HCPCS: 87635; C9803

== ENCOUNTER → 2021-08-12 06:52 | Outpatient (CLI) | payer OTHER, MEDICAID, SELFPAY ==
--- NOTE | 2021-08-18 10:49 | PM.PFT.1 ---
Pulmonary Function Test Referral & Results Date Patient Seen: 08/12/21 Requesting provider: Debby Qureshi Results: The spirometry demonstrates an FVC of 3.16 L which is 100% of predicted. The FEV1 was measured at 2.66 L which is 106% of predicted. The FEV1/FVC ratio was 84 which is 105% of predicted. Following the administration of bronchodilator there was a 23% improvement in FEF 25-75% Lung volumes show an SVC of 3.31 L which is 112% of predicted. The diffusing capacity was measured at 22.68 which is 112% of predicted. The maximum voluntary ventilation was normal Interpretation: This study demonstrates normal pulmonary function Charges Tests/bronchodilator: Complete PFT: with bronchodilator Tests: Yes Diffusing capacity
== END ==
PROVIDERS: PCP Family Medicine; Referring Provider Family Medicine; Visit Provider Family Medicine
DX: R06.02 Shortness of breath (principal); Z87.01 Personal history of pneumonia (recurrent); Z86.711 Personal history of pulmonary embolism
CPT/HCPCS: 94060; 94726; 94729

== ENCOUNTER → 2021-09-16 08:54 | Outpatient (CLI) | payer OTHER, MEDICAID, SELFPAY ==
--- NOTE | 2021-09-16 08:56 | DI.ECHO.S_ITS ---
[facility] +---------+ : : [address] : : : : [id number] : : : : Phone: [phone]+ Echocardiogram Report + + :Name: DAVID FUENTES Study Date: 09/16/2021 Height: 61 in : :[facility] ReadingLocation: Weight: 125 lb : : Gender: Female BSA: 1.5 m2 : :: 1970 Age: 51 yrs BP: 145/89 mmHg: :Reason For Study: Murmur : : Performed By: Minnie Maharaj : :Referring: NATALIIA RAMESH : + + Interpretation Summary The ejection fraction is estimated to be 60-65%. Diastolic parameters suggest probable normal left ventricular diastolic function and normal filling pressures. The right ventricle is normal in size and function. No significant valvular abnormalities. Pulmonary artery pressures cannot be estimated because of the lack of a measurable TR jet velocity. Procedure: A two-dimensional transthoracic echocardiogram with color flow and Doppler was performed. The study quality was technically adequate. The patient was in sinus rhythm with heart rates between 53-75 bpm during the exam. Left Ventricle: The left ventricle is normal in size and wall thickness. The ejection fraction is estimated to be 60-65%. Diastolic parameters suggest probable normal left ventricular diastolic function and normal filling pressures. Right Ventricle: The right ventricle is normal in size and function. Atria: The left atrial size is normal. Right atrial size is normal. There is no Doppler evidence for an interatrial shunt. Mitral Valve: The mitral valve is normal in structure and function. There is trace mitral regurgitation. Aortic Valve: The aortic valve is trileaflet. The aortic valve opens well. There is no aortic valve stenosis. No aortic regurgitation is present. Tricuspid Valve: The tricuspid valve is normal in structure and function. There is trace tricuspid regurgitation. Pulmonary artery pressures cannot be estimated because of the lack of a measurable TR jet velocity. Pulmonic Valve: The pulmonic valve leaflets are thin and pliable; valve motion is normal. There is no pulmonic valvular regurgitation. Great Vessels: The aortic root is normal size. The ascending aorta is at the upper limits of normal in size. The IVC is of normal diameter and collapses greater than 50% with a sniff. This suggests a low right atrial pressure of 3 mm Hg. Pericardium/ Pleura There is no pericardial effusion. There is no pleural effusion. MMode/2D Measurements & Calculations LVIDd: 5.0 cm LVOT diam: 2.0 cm LVIDs: 3.3 cm Ao root diam: 3.1 cm FS: 33.2 % asc Aorta Diam: 3.6 cm IVSd: 0.73 cm Ao Arch Diam (Prox Trans): 2.8 cm LVPWd: 0.86 cm LV nelson. diameter/BSA (cm/m^2): 3.2 LV sys. diameter/BSA (cm/m^2): 2.2 LA A2 area: 19.5 cm2 RA long axis: 4.6 cm LA A4 area: 17.4 cm2 RA area: 14.0 cm2 LA length (vol): 5.1 cm RA vol: 36.4 ml LA vol: 56.8 ml RA : 23.5 ml/m2 LA vol index: 36.7 ml/m2 IVC diam: 1.4 cm RVD2 (mid): 3.4 cm TAPSE: 2.0 cm Doppler Measurements & Calculations Ao V2 max: 179.0 cm/sec LVOT Max Fabrice: 115.5 cm/sec Ao V2 mean: 113.5 cm/sec LV V1 max P.3 mmHg Ao max P.8 mmHg LV V1 VTI: 23.8 cm Ao mean P.2 mmHg AILYN(I,D): 2.1 cm2 Ao V2 VTI: 35.4 cm AILYN(V,D): 2.0 cm2 sev ratio: 0.67 AILYN indexed to BSA (cm^2/m^2): 1.4 MV E max fabrice: 80.4 cm/sec PA V2 max: 116.8 cm/sec MV A max fabrice: 54.9 cm/sec PA V2 mean: 78.9 cm/sec MV E/A: 1.5 PA mean P.8 mmHg Med Peak E' Fabrice: 9.6 cm/sec PA pr(Accel): 22.5 mmHg E/E' med: 8.4 Lat Peak E' Fabrice: 11.9 cm/sec E/E' lat: 6.7 E/e' average: 7.6 MV dec time: 0.20 sec SV([facility]): 74.4 ml Reading Physician:09:43 AM
== END ==
PROVIDERS: PCP Family Medicine; Referring Provider Family Medicine; Visit Provider Family Medicine
DX: R01.1 Cardiac murmur, unspecified (principal)
CPT/HCPCS: 93306

== ENCOUNTER → 2021-12-06 11:31 | Outpatient (CLI) | payer OTHER, MEDICAID, SELFPAY ==
[2021-12-06 13:09] LABS: Add Manual Diff / Slide Review NO; Basophils Absolute Auto 0 /uL (0-100); Basophils Percent Auto 0.5 % (0-2); Eosinophils Absolute Auto 0 /uL (0-450); Eosinophils Percent Auto 0.7 % (2-4); Hematocrit 37.5 % (36-46); Hemoglobin 12.8 g/dL (12.0-16.0); Lymphocytes Absolute Auto 1700 /uL (1100-4500); Mean Corpuscular HGB Conc 34.1 % (30-36); Mean Corpuscular Volume 96.8 fL (80-100); Monocytes Absolute Auto 500 /uL (0-900); Monocytes Percent Auto 11.2 % (3-14); Neutrophils Absolute Auto 2200 /uL (1500-7000); Neutrophils Percent Auto 48.6 % (50-75); Platelet Count 230 X10^3/uL (150-400); Red Blood Cell Count 3.88 X10^6/uL (4.0-5.2); Red Cell Distribution Width 12.9 % (11.6-14.8); White Blood Cell Count 4.5 X10^3/uL (4.5-11.0)
[2021-12-06 13:16] LABS: Alanine Aminotransferase 17 IU/L (<35); Albumin 4.1 g/dL (3.5-5.0); Albumin Globulin Ratio 1.5 (1.0-2.8); Alkaline Phosphatase 55 U/L (38-126); Aspartate Aminotransferase 25 IU/L (14-36); BUN Creatinine Ratio 21.3 (6-22); Bilirubin Total 0.3 mg/dL (0.2-1.3); Blood Urea Nitrogen 17 mg/dL (7-17); Calcium 9.3 mg/dL (8.4-10.2); Carbon Dioxide 29 mmol/L (22-32); Chloride 103 mmol/L (98-107); Estimated Glomerular Filt Rate > 60 mL/min (>60); Globulin 2.7 g/dL (1.7-4.1); Glucose 97 mg/dL (70-100); HEMOLYSIS < 15 (0-50); Potassium 4.5 mmol/L (3.4-5.1); Sodium 139 mmol/L (137-145); Total Protein 6.8 g/dL (6.3-8.2)
[2021-12-07 04:54] LABS: Valproic Acid (Depakene) Total 19 ug/mL (50-100)
== END ==
PROVIDERS: PCP Family Medicine; Referring Provider Psychiatry & Neurology Psychiatry; Visit Provider Psychiatry & Neurology Psychiatry
DX: F33.2 Major depressive disorder, recurrent severe without psychotic features (principal); F41.9 Anxiety disorder, unspecified; F43.12 Post-traumatic stress disorder, chronic; Z79.899 Other long term (current) drug therapy; Z51.81 Encounter for therapeutic drug level monitoring
CPT/HCPCS: 36415; 80053; 80164; 85025

== ENCOUNTER → 2022-08-22 10:55 | Outpatient (CLI) | payer OTHER, MEDICAID, SELFPAY ==
[2022-08-22 12:31] LABS: Alanine Aminotransferase 16 IU/L (<35); Albumin 3.8 g/dL (3.5-5.0); Albumin Globulin Ratio 1.4 (1.0-2.8); Alkaline Phosphatase 48 U/L (38-126); Aspartate Aminotransferase 19 IU/L (14-36); Bilirubin Total 0.4 mg/dL (0.2-1.3); Blood Urea Nitrogen 12 mg/dL (7-17); Calcium 9.1 mg/dL (8.4-10.2); Carbon Dioxide 29 mmol/L (22-32); Chloride 101 mmol/L (98-107); Globulin 2.7 g/dL (1.7-4.1); Glucose 101 mg/dL (70-100); HEMOLYSIS < 15 (0-50); Potassium 4.3 mmol/L (3.4-5.1); Sodium 136 mmol/L (137-145); Total Protein 6.5 g/dL (6.3-8.2)
[2022-08-22 12:32] LABS: BUN Creatinine Ratio 15.8 (6-22); Estimated Glomerular Filt Rate > 60 mL/min (>60)
[2022-08-23 05:27] LABS: Valproic Acid (Depakene) Total 81 ug/mL (50-100)
[2022-08-24 12:37] LABS: Lamotrigine Lamictal 12.4 ug/mL (2.0-20.0)
== END ==
PROVIDERS: PCP Family Medicine; Referring Provider Psychiatry & Neurology Psychiatry; Visit Provider Psychiatry & Neurology Psychiatry
DX: F31.60 Bipolar disorder, current episode mixed, unspecified (principal); Z79.899 Other long term (current) drug therapy
CPT/HCPCS: 36415; 80053; 80164; 80175

== ENCOUNTER → 2023-04-10 16:52 | Outpatient (CLI) | payer OTHER, MEDICAID, SELFPAY ==
--- NOTE | 2023-04-10 16:55 | DI.MG.S_ITS ---
BILATERAL DIGITAL SCREENING MAMMOGRAM 3D/2D WITH CAD: 04/10/2023 CLINICAL: Routine screening. Comparison is made to exam dated: 12/24/2015 mammogram - [facility]. Both breasts are heterogeneously dense, which may obscure small masses (category c / 51-75% glandular tissue). Current study was also evaluated with a Computer Aided Detection (CAD) system. No significant masses, calcifications, or other findings are seen in either breast. There has been no significant interval change. IMPRESSION: NEGATIVE There is no mammographic evidence of malignancy. A 1 year screening mammogram is recommended. Based on the Tyrer Cuzick model (a risk assessment model) the patient's lifetime risk is 8.0% and her 10 year risk is 2.0%. According to the ACR, ACS, and NCCN guidelines, an annual breast MRI exam along with mammogram is recommended if the patient's lifetime risk is 20% or greater. This exam was interpreted at Station ID: [id number]. NOTE: For mammograms, a report in lay terms will be sent to the patient. Approximately 15% of breast malignancies will not be visualized mammographically. In the management of a palpable breast mass, a negative mammogram must not discourage biopsy of a clinically suspicious lesion. Electronically Signed By: Bucky cabrera/benita:04/11/2023 11:21:57 letter sent: Normal Exam ACR BI-RADS Category 1: Negative 3341F
== END ==
PROVIDERS: PCP Family Medicine; Referring Provider Family Medicine; Visit Provider Family Medicine
DX: Z12.31 Encounter for screening mammogram for malignant neoplasm of breast (principal)
CPT/HCPCS: 77063; 77067

== ENCOUNTER 2023-08-02 14:03 | Outpatient (RCR) | payer OTHER, MEDICAID, SELFPAY ==
--- NOTE | 2023-08-02 16:02 | OT.OP.DC ---
Visit Care Team Role Provider Type Marek Osborn DO Family Provider Physician Primary Care Provider Address: [address] [place] [address], [address], [place], [address] Email: [email or web address] Hernandez MD Attending Provider Physician Referring Provider Address: [address] [place] [address], [address], [place], [address] Email: [email or web address] Outpatient OT Outpatient Adult Evaluation Start: 08/02/23 15:23 Freq: Status: Active Protocol: Document 08/02/23 15:24 AMS (Rec: 08/02/23 16:02 AMS [id number]) General Information - Adult Visit Information Insurance Information [facility]; Max 24 PT/ OT combined visits PCY Session Time Visit Start Time 14:30 Visit Stop Time 15:15 Setting Treatment Setting Outpatient Care Visit Type Note Type Initial Evaluation Referral Referring Physician Reymundo Hernandez MD; seeing DINORA Cline Identification Identification Confirmed Yes Identification Confirmed By Self Assessment/Plan Assessment Treatment Assessment Margo Hooker) is a 53 y.o. and referred to OT d/t sensory processing concerns/ difficulties. Medical history is significant for pulmonary embolism and surgery on tonsils, x 2; Jennifer also indicated that she is taking medications for anxiety and ADHD and social history is significant for medical marijuana. Jennifer verbally indicated h/o PTSD (approx 2 years ago) and diagnosis of bipolar disorder. Jennifer reports that she is seeing Marycarmen on a weekly basis for counseling. Jennifer resides in [place] w/ Aunt (or possibly Aunt and Uncle). She is actively utilizing ear plugs d/t auditory sensitivities; she uses a cord attached to ear plugs for tracking a set's location, as well as a storage pod for storage of another pair attached to set of keys. She has already adjusted the settings on her car's radio based on auditory sensitivities (nick) and has identified solutions for managing competing sounds from t.v. in the home, including potential use of blue tooth system. She reports that she has an upcoming concert that she intends on attending at the [employer]. She reports sensitivities to loud children and dogs; she denies currently working. She presented w/ necklaces/ earrings/rings and a personal notebook decorated w/ varying scrapbooking textures, w/ preference for bare footedness /and gardening without gloves. Although, she reported dislike of varying water temperatures and washing dishes (w/ consideration of wearing kitchen gloves to promote completion). She demonstrated great eye-hand/ fine motor coordination/ bimanual coordination/ awareness of body in space and awareness of body in relationship to the environment w/ use of yo-yos. Did discuss potential strategies to bring balance component w/ use of yo-yos given reported concerns w/ bumping into items in the environment. Given that Jennifer has a number of strategies/ tools that she is actively utilizing to address her main auditory concerns, recommend d /c from outpatient OT and continuing w/ weekly appts w/ Marycarmen. Plan Patient Recommendations Discharge from Occupational Therapy Comment Rec cont w/ counseling Functional Wrist/Hand Scan Hand Side Sensory Assessment Sensory Profile2
== END 2023-08-03 13:26 | disposition home or self-care (01) ==
LOC: OT 14:03
PROVIDERS: Family Provider Family Medicine; PCP Family Medicine; Referring Provider Psychiatry & Neurology Psychiatry; Visit Provider Psychiatry & Neurology Psychiatry
DX: F88 Other disorders of psychological development (principal)
CPT/HCPCS: 97165

== ENCOUNTER → 2024-08-01 14:03 | Outpatient (CLI) | payer OTHER, SELFPAY ==
[2024-08-01 14:43] LABS: Add Manual Diff / Slide Review NO; Basophils Absolute Auto 0 /uL (0-100); Basophils Percent Auto 0.5 % (0-2); Eosinophils Absolute Auto 0 /uL (0-450); Eosinophils Percent Auto 0.8 % (2-4); Hematocrit 38.4 % (36-46); Hemoglobin 13.1 g/dL (12.0-16.0); Lymphocytes Absolute Auto 2500 /uL (1100-4500); Lymphocytes Percent Auto 49.1 % (25-40); Mean Corpuscular Hemoglobin 33.1 PG (26-34); Mean Corpuscular Volume 97.3 fL (80-100); Monocytes Absolute Auto 500 /uL (0-900); Monocytes Percent Auto 9.1 % (3-14); Neutrophils Absolute Auto 2100 /uL (1500-7000); Neutrophils Percent Auto 40.5 % (50-75); Platelet Count 250 X10^3/uL (150-400); Red Blood Cell Count 3.95 X10^6/uL (4.0-5.2); Red Cell Distribution Width 13.1 % (11.6-14.8); White Blood Cell Count 5.1 X10^3/uL (4.5-11.0)
[2024-08-01 15:07] LABS: Alanine Aminotransferase 15 IU/L (<35); Albumin 4.4 g/dL (3.5-5.0); Albumin Globulin Ratio 1.6 (1.0-2.8); Alkaline Phosphatase 52 U/L (38-126); Aspartate Aminotransferase 20 IU/L (14-36); Bilirubin Total 0.3 mg/dL (0.2-1.3); Blood Urea Nitrogen 22 mg/dL (7-17); Calcium 9.2 mg/dL (8.4-10.2); Carbon Dioxide 22 mmol/L (22-32); Chloride 105 mmol/L (98-107); Estimated Glomerular Filt Rate > 60 mL/min (>60); Globulin 2.7 g/dL (1.7-4.1); Glucose 99 mg/dL (70-100); HEMOLYSIS < 15 (0-50); Potassium 4.2 mmol/L (3.4-5.1); Sodium 138 mmol/L (137-145); Total Protein 7.1 g/dL (6.3-8.2)
[2024-08-01 15:39] LABS: TSH w/ Reflex to FT4 1.26 uIU/mL (0.47-4.68)
[2024-08-02 04:08] LABS: Valproic Acid (Depakene) Total 70 ug/mL (50-100)
[2024-08-05 05:10] LABS: Lamotrigine Lamictal 11.4 ug/mL (2.0-20.0)
== END ==
PROVIDERS: Family Provider Family Medicine; Referring Provider Psychiatry & Neurology Psychiatry; Visit Provider Psychiatry & Neurology Psychiatry
DX: F31.60 Bipolar disorder, current episode mixed, unspecified (principal); Z79.899 Other long term (current) drug therapy
CPT/HCPCS: 36415; 80053; 80164; 80175; 84443; 85025